=== PATIENT | female | born 1950 | race Caucasian/White ===

== ENCOUNTER 2019-02-10 15:42 | Inpatient (IN) ==
--- NOTE | 2019-02-10 16:46 | Emergency Department Note ---
Disposition Clinical Impression: Weakness Failure to thrive Qualifiers: Failure to thrive age range: in adult Qualified Code(s): R62.7 - Adult failure to thrive Disposition: Admitted As Inpatient Condition: Fair Referrals: Leida Dixon CNP [Primary Care Provider] - Forms: ED Satisfaction Letter Time of Disposition: 18:25 General Adult HPI - General Chief complaint: ED Weakness Stated complaint: weakness Time Seen by Provider: 02/10/19 16:02 Source: patient Mode of arrival: ambulatory Limitations: no limitations Nursing Notes Reviewed: Yes Vital Signs Reviewed: Yes - History of Present Illness HPI Narrative: Patient is a 68-year-old female history of retention and concern for metastatic cancer presenting to the emergency department from the [facility] for weakness. Patient was seen there earlier for a consultation on possible metast atic cancer. She has had a 30 pound weight loss in the past 6-8 weeks as well as severe fatigue, muscle weakness, poor appetite, chills, fever, nausea, constipation. Recent CT scans performed showed multiple liver lesions as well as sclerotic and lucent bone lesions of L5 and T12 and compression fractures of L5 and T12. There is also a 5.3 mm right lower lung nodule. Patient denies chest pain, abdominal pain. Pain Scale: 1 - Related Data Home Medications Medication Instructions Recorded Confirmed Atenolol [Tenormin] 25 mg PO DAILY 02/10/19 02/10/19 Allergies Allergy/AdvReac Type Severity Reaction Status Date / Time meperidine [From Demerol] Allergy Hives Verified 01/30/19 16:07 morphine Allergy Hives Verified 01/30/19 16:07 All systems ED: reviewed and negative except as stated. Review of Systems: As Per HPI Constitutional: Reports: fever, chills, weakness, weight change Eyes: Denies: eye pain, eye discharge ENT ED: Denies: ear pain, throat pain Cardiovascular: Denies: chest pain, palpitations Respiratory: Denies: cough, dyspnea Gastrointestinal: Reports: nausea. Denies: abdominal pain Genitourinary: Denies: urgency, dysuria Musculoskeletal: Reports: back pain. Denies: neck pain Integumentary: Denies: rash, abrasion Neurological: Reports: weakness. Denies: headache Psychiatric: Denies: anxiety, depression Endocrine: Reports: fatigue, heat or cold intolerance Hematological/Lymphatic: Denies: easy bleeding, easy bruising Allergic/Immunologic: Denies: facial swelling, urticaria Past Medical History - Past Medical History Attestation: Yes The following information was validated with the patient. Source: patient Medical history: Reports: arthritis, osteoporosis, other Psychiatric history: Reports: anxiety, depression - Social History Smoking Status: Never smoker Smokeless Tobacco Status: No Alcohol use: Reports: none Drug use: Reports: none Physical Exam - General Limitations: no limitations General appearance: alert - Head Head exam: atraumatic, normocephalic - Eye Eye exam: Present: normal appearance, PERRL, EOMI. Absent: scleral icterus, conjunctival injection - ENT ENT exam: normal exam, normal oropharynx, mucous membranes dry - Neck Neck exam: Present: normal inspection, full ROM - Chest Chest inspection: Present: normal inspection, symmetric chest wall rise. Absent: tenderness - Respiratory Respiratory exam: Present: normal lung sounds bilaterally. Absent: respiratory distress, wheezes - Cardiovascular Cardiovascular exam: Present: regular rate, normal rhythm, normal heart sounds - Abdominal Exam Abdominal exam: Present: soft, Non-Tender. Absent: tenderness, distention, guarding - Extremities Exam Extremities exam: Present: normal inspection, full ROM - Back Exam Back exam: Present: normal inspection, full ROM, tenderness (Lower thoracic) - Neurological Exam Neurological exam: Present: alert, oriented X3, CN II-XII intact. Absent: motor sensory deficit - Psychiatric Psychiatric exam: Present: normal affect, depressed - Skin Skin exam: Present: warm, dry Course Vital Signs Temperature 98.7 F 02/10/19 15:49 Pulse Rate 81 02/10/19 15:49 Respiratory Rate 17 02/10/19 15:49 Blood Pressure 126/76 02/10/19 15:49 O2 Sat by Pulse Oximetry 99 02/10/19 15:49 Temperature 98.7 F 02/10/19 15:49 Pulse Rate 85 02/10/19 18:05 Respiratory Rate 19 02/10/19 18:05 Blood Pressure 125/60 02/10/19 18:05 O2 Sat by Pulse Oximetry 100 02/10/19 18:05 Oxygen Delivery Oxygen Delivery Room Air Medical Decision Making - MDM Narrative Medical decision making narrative: Patient is a 68-year-old female with concerns for metastatic cancer seen by Dr. Cardoza today at the [facility] who said she should come into the emergency department to be admitted for weakness and failure to thrive. I will perform basic laboratory evaluation here. Spoke to Dr. cardoza he states that there is concern for metastatic cancer on his physical exam he noted a axillary lymph node that was enlarged that he would like to biopsy. He is planning to have the patient admitted and with him as consult so he can have some of these tests done here in the hospital. Spoke with Dr. Grijalva of the hospitalist service who has agreed to admit the patient. - Medical Records Medical records reviewed: Yes I reviewed the patient's medical records. - Lab Data Result diagrams: 02/10/19 16:55 02/10/19 16:55 Lab Results 02/10/19 02/10/19 02/10/19 Range/Units 16:40 16:55 16:55 WBC 8.0 (4.3-11.1) K/mcL RBC 3.83 (3.82-4.97) M/mcL Hgb 10.4 L (11.5-15.4) g/dL Hct 33.8 L (35.3-44.9) % MCV 88.3 (83.0-100.0) fL MCH 27.2 L (28.0-33.3) pg MCHC 30.8 L (31.6-35.5) g/dL RDW 14.6 H (11.5-14.5) % Plt Count 177 (140-400) K/mcL MPV 11.9 (9.4-12.4) fL Immature Gran % 4.9 H (0-4) % Seg Neutrophils % 54.9 % Lymphocytes % 28.5 % Monocytes % 9.8 % Eosinophils % 1.0 % Basophils % 0.9 % Neutrophils # 4.4 (1.6-8.9) K/mcL Lymphocytes # 2.3 (0.6-4.6) K/mcL Monocytes # 0.8 (0.0-1.3) K/mcL Eosinophils # 0.1 (0.0-0.6) K/mcL Basophils # 0.1 (0.0-0.2) K/mcL Nucleated RBCs/100 WBC 0.4 H (0) /100 WBC Sodium 137 (136-145) mEq/L Potassium 4.2 (3.5-5.1) mEq/L Chloride 100 (98-107) mEq/L Carbon Dioxide 27 (23-29) mEq/L BUN 17 (8-23) mg/dL Creatinine 1.06 (0.60-1.20) mg/dL Est GFR ( Amer) > 60 (> 60) Est GFR (Non-Af Amer) 51 L (> 60) BUN/Creatinine Ratio 16 (6-26) Glucose 120 H (70-105) mg/dL Calculated Osmolality 287 (280-300) Calcium 10.1 (8.6-10.3) mg/dL Total Bilirubin 0.6 (0.3-1.0) mg/dL AST 120 H (13-39) Units/L ALT 14 (7-52) Units/L Alkaline Phosphatase 151 H (34-104) Units/L Troponin I < 0.03 (< 0.04) ng/mL Serum Total Protein 6.9 (6.4-8.9) g/dL Albumin 3.9 (3.5-5.7) g/dL Globulin 3.0 (2.4-3.5) g/dL Albumin/Globulin Ratio 1.3 (1.1-2.2) Urine Color Yellow (Yellow) Urine Clarity Clear (Clear) Urine pH 6.5 (5.0-8.0) pH Units Ur Specific [place] 1.023 (1.010-1.025) Urine Protein 30 H (Neg-Trace) mg/dL Urine Glucose (UA) Normal (Normal) mg/dL Urine Ketones Negative (Negative) mg/dL Urine Blood Negative (Negative) Urine Nitrite Negative (Negative) Urine Bilirubin Negative (Negative) Urine Urobilinogen Normal (Normal) mg/dL Ur Leukocyte Esterase Small H (Negative) Urine Microscopic RBC 5-15 H (0-3) per hpf Urine Microscopic WBC 5-15 H (0-3) per hpf Ur Squamous Epith Cells Many H (None-Few) per lpf Urine Bacteria None Seen (None-Few) per hpf Hyaline Casts None Seen (None-Few) per lpf Ur Culture Indicated? YES A (NO)
[2019-02-10] MEDS ORDERED: 0.9 % Sodium Chloride 1,000 ML IVC ONE (17:13)
[2019-02-10 17:25] LABS: Basophils # 0.1 K/mcL (0.0-0.2); Basophils % 0.9 %; Eosinophils # 0.1 K/mcL (0.0-0.6); Hematocrit 33.8 % (35.3-44.9); Hemoglobin 10.4 g/dL (11.5-15.4); Immature Granulocytes % 4.9 % (0-4); Lymphocytes # 2.3 K/mcL (0.6-4.6); Lymphocytes % 28.5 %; Mean Corpuscular HGB Conc 30.8 g/dL (31.6-35.5); Mean Corpuscular Hemoglobin 27.2 pg (28.0-33.3); Mean Corpuscular Volume 88.3 fL (83.0-100.0); Mean Platelet Volume 11.9 fL (9.4-12.4); Monocytes # 0.8 K/mcL (0.0-1.3); Monocytes % 9.8 %; Neutrophils # 4.4 K/mcL (1.6-8.9); Nucleated Red Blood Cells 0.4 /100 WBC (0); Platelet Count 177 K/mcL (140-400); Red Blood Count 3.83 M/mcL (3.82-4.97); Red Cell Distribution Width 14.6 % (11.5-14.5); Segmented Neutrophils % 54.9 %
[2019-02-10 17:27] LABS: Bilirubin,Urine Negative (Negative); Blood,Urine Negative (Negative); Clarity,Urine Clear (Clear); Color,Urine Yellow (Yellow); Glucose,Urine (UA) Normal (Normal); Ketones,Urine Negative (Negative); Leukocyte Esterase,Urine Small (Negative); Nitrite,Urine Negative (Negative); PH,Urine 6.5 pH Units (5.0-8.0); Protein,Urine 30 mg/dL (Neg-Trace); Specific Gravity,Urine 1.023 (1.010-1.025); Urobilinogen,Urine Normal (Normal)
[2019-02-10 17:31] LABS: Bacteria,Urine None Seen per hpf (None-Few); Hyaline Casts,Urine None Seen per lpf (None-Few); Squamous Epithelial Cell,Urine Many per lpf (None-Few)
[2019-02-10 17:44] LABS: Alanine Aminotransferase 14 Units/L (7-52); Albumin 3.9 g/dL (3.5-5.7); Albumin/Globulin Ratio 1.3 (1.1-2.2); Alkaline Phosphatase 151 Units/L (34-104); Aspartate Amino Transferase 120 Units/L (13-39); BUN/Creatinine Ratio 16 (6-26); Bilirubin,Total 0.6 mg/dL (0.3-1.0); Blood Urea Nitrogen 17 mg/dL (8-23); Calcium 10.1 mg/dL (8.6-10.3); Carbon Dioxide 27 mEq/L (23-29); Chloride 100 mEq/L (98-107); Glucose 120 mg/dL (70-105); Osmolality,Calculated 287 (280-300); Potassium 4.2 mEq/L (3.5-5.1); Sodium 137 mEq/L (136-145); Total Protein 6.9 g/dL (6.4-8.9); Troponin I < 0.03 ng/mL (< 0.04); eGFR For African Americans > 60 (> 60); eGFR For Non-African Americans 51 (> 60)
--- NOTE | 2019-02-10 17:56 | Emergency Department Note ---
Disposition Clinical Impression: Weakness Failure to thrive Qualifiers: Failure to thrive age range: in adult Qualified Code(s): R62.7 - Adult failure to thrive Disposition: Admitted As Inpatient Condition: Fair Time of Disposition: 18:25 General Adult HPI - General Chief complaint: ED Weakness Stated complaint: weakness Time Seen by Provider: 02/10/19 16:02 Source: patient Mode of arrival: ambulatory Limitations: no limitations - History of Present Illness Pain Scale: 1 - Related Data Home Medications Medication Instructions Recorded Confirmed Atenolol [Tenormin] 25 mg PO DAILY 02/10/19 02/10/19 Allergies Allergy/AdvReac Type Severity Reaction Status Date / Time meperidine [From Demerol] Allergy Hives Verified 01/30/19 16:07 morphine Allergy Hives Verified 01/30/19 16:07 Constitutional: Reports: fever, chills, weakness, weight change Eyes: Denies: eye pain, eye discharge ENT ED: Denies: ear pain, throat pain Cardiovascular: Denies: chest pain, palpitations Respiratory: Denies: cough, dyspnea Gastrointestinal: Reports: nausea. Denies: abdominal pain Genitourinary: Denies: urgency, dysuria Musculoskeletal: Reports: back pain. Denies: neck pain Integumentary: Denies: rash, abrasion Neurological: Reports: weakness. Denies: headache Psychiatric: Denies: anxiety, depression Endocrine: Reports: fatigue, heat or cold intolerance Hematological/Lymphatic: Denies: easy bleeding, easy bruising Allergic/Immunologic: Denies: facial swelling, urticaria Past Medical History - Past Medical History Medical history: Reports: arthritis, osteoporosis, other Psychiatric history: Reports: anxiety, depression - Social History Smoking Status: Never smoker Smokeless Tobacco Status: No Alcohol use: Reports: none Drug use: Reports: none Physical Exam - General Limitations: no limitations General appearance: alert Course Vital Signs Temperature 98.7 F 02/10/19 15:49 Pulse Rate 81 02/10/19 15:49 Respiratory Rate 17 02/10/19 15:49 Blood Pressure 126/76 02/10/19 15:49 O2 Sat by Pulse Oximetry 99 02/10/19 15:49 Temperature 98.7 F 02/10/19 20:17 Pulse Rate 87 02/10/19 20:17 Respiratory Rate 16 02/10/19 20:17 Blood Pressure 135/76 02/10/19 20:17 O2 Sat by Pulse Oximetry 97 02/10/19 20:17 Oxygen Delivery Oxygen Delivery Room Air Medical Decision Making - Lab Data Result diagrams: 02/10/19 16:55 02/10/19 16:55 Lab Results 02/10/19 02/10/19 02/10/19 Range/Units 16:40 16:55 16:55 WBC 8.0 (4.3-11.1) K/mcL RBC 3.83 (3.82-4.97) M/mcL Hgb 10.4 L (11.5-15.4) g/dL Hct 33.8 L (35.3-44.9) % MCV 88.3 (83.0-100.0) fL MCH 27.2 L (28.0-33.3) pg MCHC 30.8 L (31.6-35.5) g/dL RDW 14.6 H (11.5-14.5) % Plt Count 177 (140-400) K/mcL MPV 11.9 (9.4-12.4) fL Immature Gran % 4.9 H (0-4) % Seg Neutrophils % 54.9 % Lymphocytes % 28.5 % Monocytes % 9.8 % Eosinophils % 1.0 % Basophils % 0.9 % Neutrophils # 4.4 (1.6-8.9) K/mcL Lymphocytes # 2.3 (0.6-4.6) K/mcL Monocytes # 0.8 (0.0-1.3) K/mcL Eosinophils # 0.1 (0.0-0.6) K/mcL Basophils # 0.1 (0.0-0.2) K/mcL Nucleated RBCs/100 WBC 0.4 H (0) /100 WBC Sodium 137 (136-145) mEq/L Potassium 4.2 (3.5-5.1) mEq/L Chloride 100 (98-107) mEq/L Carbon Dioxide 27 (23-29) mEq/L BUN 17 (8-23) mg/dL Creatinine 1.06 (0.60-1.20) mg/dL Est GFR ( Amer) > 60 (> 60) Est GFR (Non-Af Amer) 51 L (> 60) BUN/Creatinine Ratio 16 (6-26) Glucose 120 H (70-105) mg/dL Calculated Osmolality 287 (280-300) Calcium 10.1 (8.6-10.3) mg/dL Total Bilirubin 0.6 (0.3-1.0) mg/dL AST 120 H (13-39) Units/L ALT 14 (7-52) Units/L Alkaline Phosphatase 151 H (34-104) Units/L Troponin I < 0.03 (< 0.04) ng/mL Serum Total Protein 6.9 (6.4-8.9) g/dL Albumin 3.9 (3.5-5.7) g/dL Globulin 3.0 (2.4-3.5) g/dL Albumin/Globulin Ratio 1.3 (1.1-2.2) Urine Color Yellow (Yellow) Urine Clarity Clear (Clear) Urine pH 6.5 (5.0-8.0) pH Units Ur Specific [place] 1.023 (1.010-1.025) Urine Protein 30 H (Neg-Trace) mg/dL Urine Glucose (UA) Normal (Normal) mg/dL Urine Ketones Negative (Negative) mg/dL Urine Blood Negative (Negative) Urine Nitrite Negative (Negative) Urine Bilirubin Negative (Negative) Urine Urobilinogen Normal (Normal) mg/dL Ur Leukocyte Esterase Small H (Negative) Urine Microscopic RBC 5-15 H (0-3) per hpf Urine Microscopic WBC 5-15 H (0-3) per hpf Ur Squamous Epith Cells Many H (None-Few) per lpf Urine Bacteria None Seen (None-Few) per hpf Hyaline Casts None Seen (None-Few) per lpf Ur Culture Indicated? YES A (NO) Attestation Statement - Attestation Attestation: I examined this patient and my medical decision-making was reviewed with the Resident Physician. I agree with the documented findings, disposition and treatment plan as described except to the extent set forth below. Patient 68-year-old female that presents to emergency department with chief complaint of generalized weakness the patient is being worked up by oncology for multiple metastatic lesions found. The patient was recommended to come to the emergency department for admission since she has had significant failure to thrive at home and has had decreased by mouth intake. Exam patient is awake alert appears to be weak and also has dry mucous membranes. Medical decision management the patient will undergo a laboratory study testing. The case was discussed with the patient's oncologist who sent the patient over from the office. They recommended that we discussed case with the hospitalist and have the patient admitted so that they can consult and do further workup in the inpatient setting on the patient. I personally supervised and was present for the giordano/critical portions of the following procedures completed by the resident:EKG.
[2019-02-10] MEDS ORDERED: Naloxone 0.4 MG/ML INJ IVP PRN (20:12)
[2019-02-10] MEDS ORDERED: Ondansetron ODT 4 MG TAB.RAPDIS SL PRN (20:12)
--- NOTE | 2019-02-10 20:30 | Internal Med History&Physical ---
Date of Encounter: 02/11/19 Time of Encounter: 20:28 Internal Medicine - H&P: HPI Chief complaint: weakness Admitted From: Home Plans for Post Hospital Care: Home History of present illness: Ms. Motta is a 68 year old female presented to the ED from the oncology clinic for failure to thrive. Face to face encounter at 8:pm. Patient reported the past few months has been follow-up with chiropractor for chronic back pain however the past month has went to [facility] where a workup imaging was done on her lumbar back and was noted to have multiple metastatic spots. Patient then followed up with oncology in the clinic. Patient reported that she has been becoming more weak and unintentional weight loss with Low oral intake due to low appetite. Patient otherwise denies chest pain, shortness of breath, nausea, ni ght sweats, abdominal pain, dysuria or diarrhea. Patient reported her last mammography was done approximately more than 2 years ago, loss colonoscopy less than 5 years ago that was normal, Pap smear that was done approximately 5 years ago that was normal. There is works up was done at the [facility] in [facility]. Patient denies smoking, drinking, drugs. Family history positive for renal cancer in her brother's side otherwise no cancer maternally/paternally. 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 CODE STATUS was reviewed and is full code. Past Med Surg Social Fam HX - Past Medical History Medical history: arthritis, osteoporosis, other Psychiatric history: anxiety, depression - Past Surgical History Additional surgical history: colon sx - Social History Smoking Status: Never smoker Smokeless Tobacco Status: No Alcohol use: none Drug use: none Internal Medicine - H&P: Meds Atenolol [Tenormin] 25 mg PO DAILY 02/10/19 [History] Allergy/AdvReac Type Severity Reaction Status Date / Time meperidine [From Demerol] Allergy Hives Verified 01/30/19 16:07 morphine Allergy Hives Verified 01/30/19 16:07 All Systems PM: A 10-system review of systems was performed and is negative for pertinent findings except as documented above in the HPI. Review of systems: General: + unintentional weightloss, No fever Head: No headahce, No injury. Ears: No discharge, No earache Eyes: No drainage, No eye pain Mouth and Throat: No new ulcers, No pain Nose and Sinus: No new congestion, No pain, Respiratory: No cough, No sputum production, No dyspnea Cardiovascular: No chest pain, No palpitations. Gastrointestinal: + nausea, No vomiting. No abdominal pain. Genital Tract: No discharge, No pain Urinary Tract: No dysuria, No discharge. MSK: No new/worsening joint pain, No new/worsening muscle ache. Endocrine: No cold intolerance, No polyuria Psychological: No suicidal, No homocidal ideation. - Constitutional Vitals: Temp Pulse Resp BP Pulse Ox 98.7 F 87 16 135/76 97 02/10/19 20:17 02/10/19 20:17 02/10/19 20:17 02/10/19 20:17 02/10/19 20:17 Exam: General Appearance: Appearing as age, well-nourished in mild acute distress. Head: Atraumatic normocephalic Skin: Normal texture, normal turgor, warm, dry. Eyes: Conjunctivae not pale with no erythema, drainage, or ulcers. Anicteric. Neck: No Lymphadenopathy in the anterior/posterior cervical chain. No thyromegaly, masses or ulcers. Trachea midline. Heart: RRR, no murmurs. Capillary refill 3 seconds Lungs: No accessory muscle usage, lungs clear to auscultation bilaterally, no wheezes or crackles. Extremities: No pitting edema, No clubbing, No cyanosis. Abdomen: Non-distended, normoactive bowel sounds. non-tender to palpation, no hepatomegally. No guarding. Neuro: AOx3 with no new sensory loss or focal deficits. MSK: Strength 5/5 Upper extremity equal bilaterally. Strength 5/5 Lower extremity equal bilaterally Internal Med - H&P Results - Labs CBC & Chem 7: 02/11/19 03:10 02/11/19 03:10 Labs: Short CBC 02/10/19 Range/Units 16:55 WBC 8.0 (4.3-11.1) K/mcL Hgb 10.4 L (11.5-15.4) g/dL Hct 33.8 L (35.3-44.9) % Plt Count 177 (140-400) K/mcL Neutrophils # 4.4 (1.6-8.9) K/mcL BMP 02/10/19 16:55 Sodium 137 Potassium 4.2 Chloride 100 Carbon Dioxide 27 BUN 17 Creatinine 1.06 Glucose 120 H Calcium 10.1 Cardiac Enzymes 02/10/19 Range/Units 16:55 Troponin I < 0.03 (< 0.04) ng/mL Liver Function 02/10/19 Range/Units 16:55 Total Bilirubin 0.6 (0.3-1.0) mg/dL AST 120 H (13-39) Units/L ALT 14 (7-52) Units/L Alkaline Phosphatase 151 H (34-104) Units/L Albumin 3.9 (3.5-5.7) g/dL Urine 02/10/19 Range/Units 16:40 Urine Color Yellow (Yellow) Urine Clarity Clear (Clear) Urine pH 6.5 (5.0-8.0) pH Units Ur Specific [place] 1.023 (1.010-1.025) Urine Protein 30 H (Neg-Trace) mg/dL Urine Glucose (UA) Normal (Normal) mg/dL - Summary of Assessment and Plan Summary of Assessment and Plan: 1.Cancer of Unknown primary suspected: Patient had lymphadenopathy axillary with screening tests done at various locations. Requested records. CT head, chest, abdomen and pelvis orderred and shows extensive metastatic disease. suspected Breast source. Heme/onc spoken to yesterday and appreciate recommendations. 2.Normocytic anemia: Anemia panel orderred. 3.Dehydration: IVF and recheck. zofran for nausea. 4.hyperglycemia: A1c pending. DVT prophylaxis: heparin Dispo: Likely < 2 day stay. - Time Spent With Patient Total time spent is greater than 39 minutes 50% in coordination of care (as documented) at patient's floor/unit and/or counseling patient: Greater than 35 minutes
[2019-02-10] MEDS ORDERED: Isovue-370 500 ML BOTTLE IVP ONE ×2 (20:34)
[2019-02-10] MEDS: Ringers Solution, Lactated 1,000 ML IVC SCH (21:34)
[2019-02-10] MEDS: *HR* Heparin 5,000 UNIT/ML VIAL SQ SCH (21:35)
[2019-02-11 03:28] LABS: Immature Reticulocyte % 26.1 % (11.0-38.0); Retculocyte # 0.08 M/mcL (0.05-0.10); Reticulocyte % 2.4 % (1.6-2.8)
[2019-02-11 03:31] LABS: Basophils % 0.5 %; Eosinophils # 0.1 K/mcL (0.0-0.6); Eosinophils % 1.5 %; Hematocrit 30.1 % (35.3-44.9); Hemoglobin 9.6 g/dL (11.5-15.4); Immature Granulocytes % 4.2 % (0-4); Lymphocytes # 2.5 K/mcL (0.6-4.6); Lymphocytes % 32.4 %; Mean Corpuscular HGB Conc 31.9 g/dL (31.6-35.5); Mean Corpuscular Hemoglobin 27.8 pg (28.0-33.3); Mean Corpuscular Volume 87.2 fL (83.0-100.0); Mean Platelet Volume 11.2 fL (9.4-12.4); Monocytes # 0.7 K/mcL (0.0-1.3); Monocytes % 9.2 %; Nucleated Red Blood Cells 0.3 /100 WBC (0); Platelet Count 159 K/mcL (140-400); Red Blood Count 3.45 M/mcL (3.82-4.97); Red Cell Distribution Width 14.6 % (11.5-14.5); Segmented Neutrophils % 52.2 %; White Blood Count 7.6 K/mcL (4.3-11.1)
[2019-02-11 03:41] LABS: INR 1.1; Prothrombin Time 12.5 Seconds (9.4-12.1)
[2019-02-11 03:47] LABS: Alanine Aminotransferase 12 Units/L (7-52); Albumin 3.5 g/dL (3.5-5.7); Albumin/Globulin Ratio 1.3 (1.1-2.2); Alkaline Phosphatase 138 Units/L (34-104); Aspartate Amino Transferase 77 Units/L (13-39); BUN/Creatinine Ratio 15 (6-26); Bilirubin,Total 0.6 mg/dL (0.3-1.0); Blood Urea Nitrogen 14 mg/dL (8-23); Calcium 9.4 mg/dL (8.6-10.3); Carbon Dioxide 23 mEq/L (23-29); Chloride 104 mEq/L (98-107); Chol/HDL Ratio 5.9 (0-4.9); Cholesterol 184 mg/dL (< 200); Globulin 2.6 g/dL (2.4-3.5); Glucose 130 mg/dL (70-105); HDL Cholesterol 31 mg/dL (40-59); LDL Cholesterol,Calculated 118 mg/dL (0-99); Magnesium 2.2 mg/dL (1.6-2.6); Osmolality,Calculated 286 (280-300); Phosphorous 4.2 mg/dL (2.7-4.5); Potassium 3.7 mEq/L (3.5-5.1); Sodium 137 mEq/L (136-145); Total Protein 6.1 g/dL (6.4-8.9); Triglycerides 177 mg/dL (< 150); eGFR For African Americans > 60 (> 60); eGFR For Non-African Americans > 60 (> 60)
[2019-02-11 03:48] LABS: % Iron Saturation 25 % (15-50); Iron 55 mcg/dL (50-170); Lactate Dehydrogenase 445 Units/L (140-271); Transferrin 159 mg/dL (203-362)
[2019-02-11 04:07] LABS: Ferritin > 1500 ng/mL (10-120)
[2019-02-11 04:12] LABS: Vitamin B12 > 1500 pg/mL (250-1100)
[2019-02-11] MEDS: *HR* Heparin 5,000 UNIT/ML VIAL SQ SCH ×3 (05:30→20:27)
[2019-02-11] MEDS: Ringers Solution, Lactated 1,000 ML IVC SCH (08:43)
--- NOTE | 2019-02-11 09:58 | Electrocardiograph Report ---
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
--- NOTE | 2019-02-11 12:02 | Oncology Inp Consult Note ---
<Isabell Estrella - Last Filed: 02/11/19 17:21> Date of Encounter: 02/11/19 Time of Encounter: 12:02 Assessment and Plan (1) Axillary adenopathy Status: Acute Assessment and plan: Right axillary lymphadenopathy- palpable and noted on CT imaging. Plan for IR consult for ultrasound-guided biopsy. Discussed biopsy with patient, but she is hesitant at making decisions regarding care. She remains NPO with plan for biopsy this afternoon. (2) Failure to thrive Status: Acute Assessment and plan: Cathi notes 30lb weight loss in the past 4-6 weeks. Travel Clerk consulted. Patient was NPO for procedure today. Qualifiers: Failure to thrive age range: in adult Qualified Code(s): R62.7 - Adult failure to thrive (3) Anemia due to chronic illness Status: Acute Assessment and plan: Normocytic, normochromic anemia Hgb 9.6 Iron profile: iron 55, saturation 25% ferritin > 1500 B12 >1500 folate 17 LDH 445 Plan: Monitor CBC. - Data of Consult Patient: known to practice within the last 3 years Consult date: 02/11/19 Requesting Physician: Zully Castanon MD Primary Care Provider: ROME Browne - Consult Narrative Reason for consult: FTT, sent from Dr. Luna's outpatient visit History of present illness: Cathi, a 68 yo female, was sent to the emergency department due to [id number] after he outpatient appointment with Dr. Luna on 02/10/19. Cathi was referred to the [facility] due to concerns for metastatic cancer. She was noted to have a pulmonary nodule and right axillary lymphadenopathy. She notes 30lb weight loss, decreased appetite, and early satiety over the past 4-6 weeks. She notes chronic back pain that has worsened. She uses a walker or cane with ambulation. Oncology history: Primary oncologist: Dr. Luna Diagnosis: pending work-up Social history: , but no longer living with . 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 Currently lives with son in [place], [place] (notes that son works outside the home and she is alone for a good part of the day) She notes little family support and may have difficulty with transportation for appointments. Denies alcohol use Denies tobacco use Denies illicit drug use Past Med Surg Social Fam HX - Past Medical History Medical history: arthritis, osteoporosis, other Psychiatric history: anxiety, depression - Past Surgical History Additional surgical history: colon sx - Social History Smoking Status: Never smoker Smokeless Tobacco Status: No Alcohol use: none Drug use: none Medications and Allergies Atenolol [Tenormin] 25 mg PO DAILY 02/10/19 [History] Ascorbate Calcium [Vitamin C] 500 mg PO DAILY 02/11/19 [History] Cyanocobalamin (Vitamin B-12) [Vitamin B-12] 1,000 mcg PO DAILY 02/11/19 [History] Magnesium Oxide [Magnesium] 400 mg PO DAILY 02/11/19 [History] Naproxen Sodium [Aleve] 220 mg PO DAILY PRN 02/11/19 [History] Allergy/AdvReac Type Severity Reaction Status Date / Time meperidine [From Demerol] Allergy Hives Verified 01/30/19 16:07 morphine Allergy Hives Verified 01/30/19 16:07 Constitutional: Present: fatigue, weight loss. Absent: night sweats Breasts: Absent: pain, nipple discharge, skin changes Cardiovascular: Absent: chest pain, palpitations Respiratory: Absent: dyspnea Gastrointestinal: Present: early satiety. Absent: nausea, vomiting Musculoskeletal: Present: back pain, muscle weakness Endocrine: Present: fatigue Oncology - Exam - Constitutional General appearance: disheveled - Head Head exam: Present: normal inspection, normocephalic - Respiratory Respiratory exam: Present: CTAB - Cardiovascular Cardiovascular exam: Present: RRR - GI/Abdominal GI/Abdominal exam: Present: normal bowel sounds, soft. Absent: tenderness - Extremities Exam Extremities exam: Present: normal inspection - Neurological Exam Neurological exam: Present: alert, oriented X3 - Psychiatric Psychiatric exam: Present: anxious - Skin Skin exam: Present: dry, pallor Oncology Inpatient Results Labs: Laboratory Results - last 24 hr 02/10/19 02/10/19 02/10/19 16:40 16:55 16:55 WBC 8.0 RBC 3.83 Hgb 10.4 L Hct 33.8 L MCV 88.3 MCH 27.2 L MCHC 30.8 L RDW 14.6 H Plt Count 177 MPV 11.9 Reticulocyte # Immature Gran % 4.9 H Seg Neutrophils % 54.9 Lymphocytes % 28.5 Monocytes % 9.8 Eosinophils % 1.0 Basophils % 0.9 Neutrophils # 4.4 Lymphocytes # 2.3 Monocytes # 0.8 Eosinophils # 0.1 Basophils # 0.1 Nucleated RBCs/100 WBC 0.4 H Smear Path Review Percent Retic Immature Retic Fraction Retic Hgb Equivalent PT INR Sodium 137 Potassium 4.2 Chloride 100 Carbon Dioxide 27 BUN 17 Creatinine 1.06 Est GFR ( Amer) > 60 Est GFR (Non-Af Amer) 51 L BUN/Creatinine Ratio 16 Glucose 120 H Calculated Osmolality 287 Calcium 10.1 Phosphorus Magnesium Iron % Saturation Transferrin Ferritin Total Bilirubin 0.6 AST 120 H ALT 14 Alkaline Phosphatase 151 H Lactate Dehydrogenase Troponin I < 0.03 Serum Total Protein 6.9 Albumin 3.9 Globulin 3.0 Albumin/Globulin Ratio 1.3 Triglycerides Cholesterol LDL Cholesterol, Calc VLDL Cholesterol, Calc HDL Cholesterol Cholesterol/HDL Ratio Vitamin B12 Folate Procalcitonin Urine Color Yellow Urine Clarity Clear Urine pH 6.5 Ur Specific [place] 1.023 Urine Protein 30 H Urine Glucose (UA) Normal Urine Ketones Negative Urine Blood Negative Urine Nitrite Negative Urine Bilirubin Negative Urine Urobilinogen Normal Ur Leukocyte Esterase Small H Urine Microscopic RBC 5-15 H Urine Microscopic WBC 5-15 H Ur Squamous Epith Cells Many H Urine Bacteria None Seen Hyaline Casts None Seen Ur Culture Indicated? YES A Blood Type Antibody Screen 02/10/19 02/10/19 02/11/19 23:02 23:02 03:10 WBC 7.6 RBC 3.45 L Hgb 9.6 L Hct 30.1 L MCV 87.2 MCH 27.8 L MCHC 31.9 RDW 14.6 H Plt Count 159 MPV 11.2 Reticulocyte # 0.08 Immature Gran % 4.2 H Seg Neutrophils % 52.2 Lymphocytes % 32.4 Monocytes % 9.2 Eosinophils % 1.5 Basophils % 0.5 Neutrophils # 4.0 Lymphocytes # 2.5 Monocytes # 0.7 Eosinophils # 0.1 Basophils # 0.0 Nucleated RBCs/100 WBC 0.3 H Smear Path Review See Below Percent Retic 2.4 Immature Retic Fraction 26.1 Retic Hgb Equivalent 32.1 PT INR Sodium Potassium Chloride Carbon Dioxide BUN Creatinine Est GFR ( Amer) Est GFR (Non-Af Amer) BUN/Creatinine Ratio Glucose Calculated Osmolality Calcium Phosphorus Magnesium Iron % Saturation Transferrin Ferritin Total Bilirubin AST ALT Alkaline Phosphatase Lactate Dehydrogenase Troponin I < 0.03 Serum Total Protein Albumin Globulin Albumin/Globulin Ratio Triglycerides Cholesterol LDL Cholesterol, Calc VLDL Cholesterol, Calc HDL Cholesterol Cholesterol/HDL Ratio Vitamin B12 Folate Procalcitonin 0.27 H Urine Color Urine Clarity Urine pH Ur Specific [place] Urine Protein Urine Glucose (UA) Urine Ketones Urine Blood Urine Nitrite Urine Bilirubin Urine Urobilinogen Ur Leukocyte Esterase Urine Microscopic RBC Urine Microscopic WBC Ur Squamous Epith Cells Urine Bacteria Hyaline Casts Ur Culture Indicated? Blood Type Antibody Screen 02/11/19 02/11/19 02/11/19 03:10 03:10 03:10 WBC RBC Hgb Hct MCV MCH MCHC RDW Plt Count MPV Reticulocyte # Immature Gran % Seg Neutrophils % Lymphocytes % Monocytes % Eosinophils % Basophils % Neutrophils # Lymphocytes # Monocytes # Eosinophils # Basophils # Nucleated RBCs/100 WBC Smear Path Review Percent Retic Immature Retic Fraction Retic Hgb Equivalent PT INR Sodium Potassium Chloride Carbon Dioxide BUN Creatinine Est GFR ( Amer) Est GFR (Non-Af Amer) BUN/Creatinine Ratio Glucose Calculated Osmolality Calcium Phosphorus Magnesium Iron 55 % Saturation 25 Transferrin 159 L Ferritin > 1500 H Total Bilirubin AST ALT Alkaline Phosphatase Lactate Dehydrogenase 445 H Troponin I Serum Total Protein Albumin Globulin Albumin/Globulin Ratio Triglycerides Cholesterol LDL Cholesterol, Calc VLDL Cholesterol, Calc HDL Cholesterol Cholesterol/HDL Ratio Vitamin B12 > 1500 H Folate 17.0 H Procalcitonin Urine Color Urine Clarity Urine pH Ur Specific [place] Urine Protein Urine Glucose (UA) Urine Ketones Urine Blood Urine Nitrite Urine Bilirubin Urine Urobilinogen Ur Leukocyte Esterase Urine Microscopic RBC Urine Microscopic WBC Ur Squamous Epith Cells Urine Bacteria Hyaline Casts Ur Culture Indicated? Blood Type O POSITIVE Antibody Screen NEGATIVE 02/11/19 02/11/19 02/11/19 03:10 03:10 03:10 WBC RBC Hgb Hct MCV MCH MCHC RDW Plt Count MPV Reticulocyte # Immature Gran % Seg Neutrophils % Lymphocytes % Monocytes % Eosinophils % Basophils % Neutrophils # Lymphocytes # Monocytes # Eosinophils # Basophils # Nucleated RBCs/100 WBC Smear Path Review Percent Retic Immature Retic Fraction Retic Hgb Equivalent PT 12.5 H INR 1.1 Sodium 137 Potassium 3.7 Chloride 104 Carbon Dioxide 23 BUN 14 Creatinine 0.92 Est GFR ( Amer) > 60 Est GFR (Non-Af Amer) > 60 BUN/Creatinine Ratio 15 Glucose 130 H Calculated Osmolality 286 Calcium 9.4 Phosphorus 4.2 Magnesium 2.2 Iron % Saturation Transferrin Ferritin Total Bilirubin 0.6 AST 77 H ALT 12 Alkaline Phosphatase 138 H Lactate Dehydrogenase Troponin I < 0.03 Serum Total Protein 6.1 L Albumin 3.5 Globulin 2.6 Albumin/Globulin Ratio 1.3 Triglycerides 177 H Cholesterol 184 LDL Cholesterol, Calc 118 H VLDL Cholesterol, Calc 35 H HDL Cholesterol 31 L Cholesterol/HDL Ratio 5.9 H Vitamin B12 Folate Procalcitonin Urine Color Urine Clarity Urine pH Ur Specific [place] Urine Protein Urine Glucose (UA) Urine Ketones Urine Blood Urine Nitrite Urine Bilirubin Urine Urobilinogen Ur Leukocyte Esterase Urine Microscopic RBC Urine Microscopic WBC Ur Squamous Epith Cells Urine Bacteria Hyaline Casts Ur Culture Indicated? Blood Type Antibody Screen Head CT 02/10/19 23:48 IMPRESSION: No acute intracranial abnormality. Focal ovoid 1 cm lucency in the right frontal skull which could represent benign entities such as a venous C[place]. Given history of cancer, metastatic disease is not excluded. Comparison with prior remote studies would be helpful if available. Otherwise, bone scan could be performed. D/ / Chani Murguia Cha, MD / Chani Murguia Cha, MD Interpreting Provider: Chani Murguia Cha, MD Abdomen/Pelvis CT 02/10/19 23:51 IMPRESSION: 1. Within the chest, the patient has enlarged right axillary lymph nodes and a large area of asymmetry in the right breast. 2. Within the chest, moderate to pronounced mediastinal adenopathy is noted. The patient has numerous scattered ill-defined lung nodules consistent with pulmonary metastasis. 3. Findings compatible with hepatic metastatic disease. Enlarged right retrocrural lymph node. 4. Demineralization in the hips and scattered osseous abnormalities consistent with extensive bony metastatic disease. 5. Uterus is abnormal in appearance with heterogeneous enlarged endometrium RECOMMENDATIONS: Consider radionuclide bone imaging. D/ / Roseanne Singh MD / Roseanne Singh MD Interpreting Provider: Roseanne Singh MD Chest CT 02/10/19 23:51 IMPRESSION: 1. Within the chest, the patient has enlarged right axillary lymph nodes and a large area of asymmetry in the right breast. 2. Within the chest, moderate to pronounced mediastinal adenopathy is noted. The patient has numerous scattered ill-defined lung nodules consistent with pulmonary metastasis. 3. Findings compatible with hepatic metastatic disease. Enlarged right retrocrural lymph node. 4. Demineralization in the hips and scattered osseous abnormalities consistent with extensive bony metastatic disease. 5. Uterus is abnormal in appearance with heterogeneous enlarged endometrium RECOMMENDATIONS: Consider radionuclide bone imaging. D/ / Roseanne Singh MD / Roseanne Singh MD Interpreting Provider: Roseanne Singh MD Consult Discharge Plan - Plan Referrals: Leida Dixon CNP [Primary Care Provider] - 02/17/19 2:30 pm Inpatient Charges Provider: Dr. Caroline Leigh <Brennon Leigh - Last Filed: 02/12/19 17:12> Date of Encounter: 02/12/19 - Data of Consult Requesting Physician: Zully Castanon MD Primary Care Provider: ROME Browne - Consult Narrative History of present illness: Imaging findings reviewed. Pt interviewed and examined Rt axillary adenopathy palpated. Discussed with pt bx procedures at 8:00AM yesterday. She is scheduled to have procedure tomorrow after my MAKE READY MECHANIC had extensive discussion with patient. Social situation, pt stays in the hospital for w/u and diagnosis. I examined this patient and my medical decision-making was reviewed with the Advanced Practice Nurse, Isabell Estrella CNP. I agree with the documented findings, disposition and treatment plan as described except to the extent set forth below. Inpatient Charges Provider: Dr. Caroline Leigh Consult - Inpatient: [id number]
--- NOTE | 2019-02-11 13:21 | Internal Med Progress Note ---
Hospitalist Progress Note - Encounter Date of Encounter: 02/11/19 Time of Encounter: 11:30 - Subjective Interval History: Ms. Motta is a 68 year old female presented to the ED from the oncology clinic for failure to thrive and further work up for her recently found metastatic disease. Patient reported she has been having chronic low back pain for few months and followed-up with chiropractor. She had X ray spine done and noticed multiple ostolytic lesions. Patient then followed up with Heme oncology. Patient reported her last mammography was done approximately more than 2 years ago, loss colonoscopy less than 5 years ago that was normal, Pap smear that was done approximately 5 years ago that was normal. Family history positive for renal cancer. In the ER her CT of Chest / Abd / pelvis showed enlarged right axillary lymph nodes and a large area of asymmetry in the right breast. Moderate to pronounced mediastinal adenopathy is noted. She has numerous scattered ill- defined lung nodules consistent with pulmonary metastasis. Demineralization in the hips and scattered osseous abnormalities consistent with extensive bony metastatic disease. Uterus is abnormal in appearance with heterogeneous enlarged endometrium. She was admitted in the hospital and started her on symptomatic and supportive care. Pt stated she is feeling better today, her pain is tolerable with current meds. She does look very depressed and initially refused to go for further work up, she thinks all her back pain is due to severe arthritis, her weight loss of 30 lbs in a month is due to lack of appetite and her back pain and bone lesions are due to his chiro practice miss management. - Exam Vitals: Temp Pulse Resp BP Pulse Ox 98.4 F 83 16 145/81 95 02/11/19 12:45 02/11/19 12:45 02/11/19 12:45 02/11/19 12:45 02/11/19 12:45 Exam: Gen: Alert, awake, Oriented to time,place and person Chest: Diminished breath sounds B/L, No wheezing, No crackles, No rales axillary lymphadenopathy+ Heart: S1S2+ RRR No murmurs Abd: Soft, NT, BS +, No organomegaly Ext: No edema, pulses are palpable, No calf tenderness Back: mild paravertebral tenderness Neuro : No acute focal neuro deficits noticed Psych: depressed.. Denied any suicidal ideation/HI Skin: No rash. - Assessment and Plan (1) Axillary adenopathy Current Visit: Yes Status: Acute Assessment and Plan: concerning for possible breast malignancy, noticed possible mass in Rt breast on CT of chest scheduled for US guided Rt axiallary lymph node biopsy by IR today Explained to the pt about importance of going for this diagnostic work up she agreed to go for biopsy today Heme onc on board.. appreciate recommendations (2) Mediastinal lymphadenopathy Current Visit: Yes Status: Acute Assessment and Plan: care as above (3) Breast mass, right Current Visit: Yes Status: Acute Assessment and Plan: care as above (4) Anemia due to chronic illness Current Visit: Yes Status: Acute Assessment and Plan: stable Hb cont close monitoring reviewed her Iron studies.. concerning for possible malignancy / chronic disease (5) Failure to thrive Current Visit: Yes Status: Acute Assessment and Plan: Due to malignancy lost 30 lbs in 1 month consult nutrition will check pre albumin level (6) Weakness Current Visit: Yes Status: Acute - Time Spent with Patient Total time spent is greater than 50% in coordination of care (as documented) at patient's floor/unit and/or counseling patient: Internal Medicine: Result - Labs CBC & Chem 7: 02/11/19 03:10 02/11/19 03:10 Labs: Short CBC 02/10/19 02/11/19 Range/Units 16:55 03:10 WBC 8.0 7.6 (4.3-11.1) K/mcL Hgb 10.4 L 9.6 L (11.5-15.4) g/dL Hct 33.8 L 30.1 L (35.3-44.9) % Plt Count 177 159 (140-400) K/mcL Neutrophils # 4.4 4.0 (1.6-8.9) K/mcL BMP 02/10/19 02/11/19 16:55 03:10 Sodium 137 137 Potassium 4.2 3.7 Chloride 100 104 Carbon Dioxide 27 23 BUN 17 14 Creatinine 1.06 0.92 Glucose 120 H 130 H Calcium 10.1 9.4 Cardiac Enzymes 02/10/19 02/10/19 02/11/19 Range/Units 16:55 23:02 03:10 Troponin I < 0.03 < 0.03 < 0.03 (< 0.04) ng/mL Liver Function 02/10/19 02/11/19 Range/Units 16:55 03:10 Total Bilirubin 0.6 0.6 (0.3-1.0) mg/dL AST 120 H 77 H (13-39) Units/L ALT 14 12 (7-52) Units/L Alkaline Phosphatase 151 H 138 H (34-104) Units/L Albumin 3.9 3.5 (3.5-5.7) g/dL Urine 02/10/19 Range/Units 16:40 Urine Color Yellow (Yellow) Urine Clarity Clear (Clear) Urine pH 6.5 (5.0-8.0) pH Units Ur Specific [place] 1.023 (1.010-1.025) Urine Protein 30 H (Neg-Trace) mg/dL Urine Glucose (UA) Normal (Normal) mg/dL - ABG Interpretation ABG results: PT/INR, D-dimer PT 12.5 Seconds (9.4-12.1) H 02/11/19 03:10 - Impressions Impressions Head CT 02/10/19 23:48 IMPRESSION: No acute intracranial abnormality. Focal ovoid 1 cm lucency in the right frontal skull which could represent benign entities such as a venous Cren[place]. Given history of cancer, metastatic disease is not excluded. Comparison with prior remote studies would be helpful if available. Otherwise, bone scan could be performed. D/ / Chani Murguia Cha, MD / Chani Murguia Cha, MD Interpreting Provider: Chani Murguia Cha, MD Abdomen/Pelvis CT 02/10/19 23:51 IMPRESSION: 1. Within the chest, the patient has enlarged right axillary lymph nodes and a large area of asymmetry in the right breast. 2. Within the chest, moderate to pronounced mediastinal adenopathy is noted. The patient has numerous scattered ill-defined lung nodules consistent with pulmonary metastasis. 3. Findings compatible with hepatic metastatic disease. Enlarged right retrocrural lymph node. 4. Demineralization in the hips and scattered osseous abnormalities consistent with extensive bony metastatic disease. 5. Uterus is abnormal in appearance with heterogeneous enlarged endometrium RECOMMENDATIONS: Consider radionuclide bone imaging. D/ / Roseanne Singh MD / Roseanne Singh MD Interpreting Provider: Roseanne Singh MD Chest CT 02/10/19 23:51 IMPRESSION: 1. Within the chest, the patient has enlarged right axillary lymph nodes and a large area of asymmetry in the right breast. 2. Within the chest, moderate to pronounced mediastinal adenopathy is noted. The patient has numerous scattered ill-defined lung nodules consistent with pulmonary metastasis. 3. Findings compatible with hepatic metastatic disease. Enlarged right retrocrural lymph node. 4. Demineralization in the hips and scattered osseous abnormalities consistent with extensive bony metastatic disease. 5. Uterus is abnormal in appearance with heterogeneous enlarged endometrium RECOMMENDATIONS: Consider radionuclide bone imaging. D/ / Roseanne Singh MD / Roseanne Singh MD Interpreting Provider: Roseanne Singh MD Consult Discharge Plan - Plan Referrals: Leida Dixon CNP [Primary Care Provider] - 02/17/19 2:30 pm (5) Failure to thrive Qualifiers: Failure to thrive age range: in adult Qualified Code(s): R62.7 - Adult failure to thrive
[2019-02-11] MEDS ORDERED: Ketorolac 15 MG/ML VIAL IVP PRN (13:56)
[2019-02-11 20:25] LABS: Bilirubin,Urine Negative (Negative); Blood,Urine Negative (Negative); Clarity,Urine Turbid (Clear); Color,Urine Yellow (Yellow); Glucose,Urine (UA) Normal (Normal); Ketones,Urine Negative (Negative); Leukocyte Esterase,Urine Small (Negative); Nitrite,Urine Negative (Negative); PH,Urine 7.5 pH Units (5.0-8.0); Protein,Urine Trace mg/dL (Neg-Trace); Specific Gravity,Urine 1.017 (1.010-1.025); Urobilinogen,Urine Normal (Normal)
[2019-02-11 20:26] LABS: Bacteria,Urine None Seen per hpf (None-Few); Hyaline Casts,Urine None Seen per lpf (None-Few); RBC,Urine 0-3 per hpf (0-3); Squamous Epithelial Cell,Urine Many per lpf (None-Few)
[2019-02-11] MEDS ORDERED: Ibuprofen 600 MG TABLET PO ONE (20:35)
[2019-02-11] MEDS: Melatonin 3 MG TABLET PO PRN (21:08)
[2019-02-12] MEDS: *HR* Heparin 5,000 UNIT/ML VIAL SQ SCH ×3 (05:28→21:08)
[2019-02-12] MEDS ORDERED: *HR* OxyCODONE Immed Rel 5 MG TABLET PO PRN (14:00)
--- NOTE | 2019-02-12 14:03 | Internal Med Progress Note ---
Hospitalist Progress Note - Encounter Date of Encounter: 02/12/19 Time of Encounter: 13:30 - Subjective Interval History: Pt was seen and examined at bed side. She denied any CP / SOB. Feels better today. Still c/o weakness and lethargy. - Exam Vitals: Temp Pulse Resp BP Pulse Ox 97.8 F 80 16 123/68 94 02/12/19 12:12 02/12/19 12:12 02/12/19 12:12 02/12/19 12:12 02/12/19 12:12 Exam: Gen: Alert, awake, Oriented to time,place and person Chest: Diminished breath sounds B/L, No wheezing, No crackles, No rales axillary lymphadenopathy+ Heart: S1S2+ RRR No murmurs Abd: Soft, NT, BS +, No organomegaly Ext: No edema, pulses are palpable, No calf tenderness Back: mild paravertebral tenderness Neuro : No acute focal neuro deficits noticed Psych: depressed.. Denied any suicidal ideation/HI Skin: No rash. - Assessment and Plan (1) Axillary adenopathy Current Visit: Yes Status: Acute Assessment and Plan: concerning for possible breast malignancy, noticed possible mass in Rt breast on CT of chest She did not finish the biopsy y/d since she felt so weak and lethargic scheduled for Mammogram and US guided Rt axiallary lymph node / breast mass biopsy by IR in AM Explained to the pt about importance of going for this diagnostic work up she agreed to go for biopsy in AM Heme onc on board.. appreciate recommendations Patient does need to stay in the hospital more than 2 midnights due to her complex medical problems. So we will change her to full admission today. I did review my colleague Dr. Tillman's H & P including HPI, PMH, PSH, FH, SH, and ROS no changes noticed (2) Mediastinal lymphadenopathy Current Visit: Yes Status: Acute Assessment and Plan: care as above (3) Breast mass, right Current Visit: Yes Status: Acute Assessment and Plan: care as above (4) Anemia due to chronic illness Current Visit: Yes Status: Acute Assessment and Plan: stable Hb cont close monitoring reviewed her Iron studies.. concerning for possible malignancy / chronic disease (5) Failure to thrive Current Visit: Yes Status: Acute Assessment and Plan: Due to malignancy lost 30 lbs in 1 month consult nutrition Will check pre albumin level (6) Weakness Current Visit: Yes Status: Acute Assessment and Plan: PT / OT eval may need ECF placement SW/ CM working on it - Time Spent with Patient Total time spent is greater than 50% in coordination of care (as documented) at patient's floor/unit and/or counseling patient: Internal Medicine: Result - Labs CBC & Chem 7: 02/11/19 03:10 02/11/19 03:10 Labs: Urine 02/11/19 Range/Units 20:17 Urine Color Yellow (Yellow) Urine Clarity Turbid A (Clear) Urine pH 7.5 (5.0-8.0) pH Units Ur Specific [place] 1.017 (1.010-1.025) Urine Protein Trace (Neg-Trace) mg/dL Urine Glucose (UA) Normal (Normal) mg/dL - ABG Interpretation ABG results: PT/INR, D-dimer PT 12.5 Seconds (9.4-12.1) H 02/11/19 03:10 Consult Discharge Plan - Plan Referrals: Leida Dixon, [employer]PER[employer] [Primary Care Provider] - 02/17/19 2:30 pm (5) Failure to thrive Qualifiers: Failure to thrive age range: in adult Qualified Code(s): R62.7 - Adult failure to thrive
[2019-02-12] MEDS ORDERED: Ibuprofen 600 MG TABLET PO ONE (22:30)
[2019-02-12] MEDS: Melatonin 3 MG TABLET PO PRN (22:49)
[2019-02-13 02:42] LABS: Hematocrit 29.2 % (35.3-44.9); Hemoglobin 9.1 g/dL (11.5-15.4); Mean Corpuscular HGB Conc 31.2 g/dL (31.6-35.5); Mean Corpuscular Hemoglobin 27.6 pg (28.0-33.3); Mean Corpuscular Volume 88.5 fL (83.0-100.0); Mean Platelet Volume 11.8 fL (9.4-12.4); Platelet Count 175 K/mcL (140-400); Red Cell Distribution Width 14.4 % (11.5-14.5); White Blood Count 6.8 K/mcL (4.3-11.1)
[2019-02-13 03:10] LABS: Alanine Aminotransferase 11 Units/L (7-52); Albumin 3.4 g/dL (3.5-5.7); Albumin/Globulin Ratio 1.2 (1.1-2.2); Alkaline Phosphatase 117 Units/L (34-104); Aspartate Amino Transferase 48 Units/L (13-39); BUN/Creatinine Ratio 14 (6-26); Bilirubin,Total 0.5 mg/dL (0.3-1.0); Blood Urea Nitrogen 15 mg/dL (8-23); Calcium 9.5 mg/dL (8.6-10.3); Carbon Dioxide 25 mEq/L (23-29); Chloride 104 mEq/L (98-107); Globulin 2.8 g/dL (2.4-3.5); Glucose 111 mg/dL (70-105); Osmolality,Calculated 286 (280-300); Potassium 3.4 mEq/L (3.5-5.1); Sodium 137 mEq/L (136-145); Total Protein 6.2 g/dL (6.4-8.9); eGFR For African Americans > 60 (> 60); eGFR For Non-African Americans 50 (> 60)
[2019-02-13] MEDS: *HR* Heparin 5,000 UNIT/ML VIAL SQ SCH ×3 (07:20→22:05)
--- NOTE | 2019-02-13 14:27 | Internal Med Progress Note ---
Hospitalist Progress Note - Encounter Date of Encounter: 02/13/19 Time of Encounter: 14:25 - Subjective Interval History: Pt was seen and examined at bed side. She denied any CP / SOB. Still c/o weakness and lethargy She just came back from Biopsy - Exam Vitals: Temp Pulse Resp BP Pulse Ox 97.8 F 75 19 131/74 98 02/13/19 08:32 02/13/19 08:32 02/13/19 08:32 02/13/19 08:32 02/13/19 08:32 Exam: Gen: Alert, awake, Oriented to time,place and person Chest: Diminished breath sounds B/L, No wheezing, No crackles, No rales Heart: S1S2+ RRR No murmurs Abd: Soft, NT, BS +, No organomegaly Ext: No edema, pulses are palpable, No calf tenderness Back: no paravertebral tenderness Neuro : No acute focal neuro deficits noticed Psych: depressed.. Denied any suicidal ideation/HI Skin: No rash. - Assessment and Plan (1) Axillary adenopathy Current Visit: Yes Status: Acute Assessment and Plan: concerning for possible breast malignancy, noticed possible mass in Rt breast on CT of chest Had Mammogram and US guided Rt axiallary lymph node / breast mass biopsy by IR today will f/u on biopsy results Heme onc on board.. appreciate recommendations (2) Mediastinal lymphadenopathy Current Visit: Yes Status: Acute Assessment and Plan: care as above (3) Breast mass, right Current Visit: Yes Status: Acute Assessment and Plan: care as above (4) Anemia due to chronic illness Current Visit: Yes Status: Acute Assessment and Plan: stable Hb cont close monitoring reviewed her Iron studies.. concerning for possible malignancy / chronic disease (5) Failure to thrive Current Visit: Yes Status: Acute Assessment and Plan: Due to malignancy lost 30 lbs in 1 month her pre albumin level @ 8.8 She hernandez shave severe PCM Appreciate nutrition recommendations (6) Weakness Current Visit: Yes Status: Acute Assessment and Plan: PT / OT eval may need ECF placement SW/ CM working on it - Time Spent with Patient Total time spent is greater than 50% in coordination of care (as documented) at patient's floor/unit and/or counseling patient: Internal Medicine: Result - Labs CBC & Chem 7: 02/13/19 01:57 02/13/19 01:57 Labs: Short CBC 02/13/19 Range/Units 01:57 WBC 6.8 (4.3-11.1) K/mcL Hgb 9.1 L (11.5-15.4) g/dL Hct 29.2 L (35.3-44.9) % Plt Count 175 (140-400) K/mcL BMP 02/13/19 01:57 Sodium 137 Potassium 3.4 L Chloride 104 Carbon Dioxide 25 BUN 15 Creatinine 1.09 Glucose 111 H Calcium 9.5 Liver Function 02/13/19 Range/Units 01:57 Total Bilirubin 0.5 (0.3-1.0) mg/dL AST 48 H (13-39) Units/L ALT 11 (7-52) Units/L Alkaline Phosphatase 117 H (34-104) Units/L Albumin 3.4 L (3.5-5.7) g/dL - ABG Interpretation ABG results: PT/INR, D-dimer PT 12.5 Seconds (9.4-12.1) H 02/11/19 03:10 - Impressions Impressions Breast Tomosynthesis Diagnostic 02/13/19 10:28 IMPRESSION: 1. Right breast 3.3 cm 11 o'clock mass consistent with primary breast malignancy. Biopsy is recommended and can be performed under ultrasound guidance. 2. Abnormal 0.6 cm intraparenchymal lymph node at approximately 10 o'clock 10 cm from the nipple which may represent a same quadrant metastatic intraparenchymal lymph node. 3. Abnormal axillary lymph nodes with a dominant 2.8 cm abnormal lymph node corresponding with the CT finding consistent with metastatic lymphadenopathy. Biopsy is recommended and this can be performed under ultrasound guidance. BIRADS: BIRADS - CATEGORY 5 Findings are highly suggestive of malignancy. Biopsy should be considered at this time. OVERALL ASSESSMENT - HIGHLY SUGGESTIVE OF MALIGNANCY. A letter of notification will be sent to the patient regarding the results. My findings and recommendations were discussed with the patient at the time of service. A consumer sales representative from the radiology department will be contacting your office and assisting the patient in getting appropriate follow-up. D/ / 02/13/2019 12:08:44 Silvio Alcantara MD / [facility] Interpreting Provider: Silvio Alcantara MD Breast Ultrasound 02/13/19 10:28 IMPRESSION: 1. Right breast 3.3 cm 11 o'clock mass consistent with primary breast malignancy. Biopsy is recommended and can be performed under ultrasound guidance. 2. Abnormal 0.6 cm intraparenchymal lymph node at approximately 10 o'clock 10 cm from the nipple which may represent a same quadrant metastatic intraparenchymal lymph node. 3. Abnormal axillary lymph nodes with a dominant 2.8 cm abnormal lymph node corresponding with the CT finding consistent with metastatic lymphadenopathy. Biopsy is recommended and this can be performed under ultrasound guidance. BIRADS: BIRADS - CATEGORY 5 Findings are highly suggestive of malignancy. Biopsy should be considered at this time. OVERALL ASSESSMENT - HIGHLY SUGGESTIVE OF MALIGNANCY. A letter of notification will be sent to the patient regarding the results. My findings and recommendations were discussed with the patient at the time of service. A consumer sales representative from the radiology department will be contacting your office and assisting the patient in getting appropriate follow-up. D/ /13/2019 12:08:44 Silvio Alcantara MD / [facility] Interpreting Provider: Silvio Alcantara MD Mammogram Diagnostic 02/13/19 10:28 IMPRESSION: 1. Right breast 3.3 cm 11 o'clock mass consistent with primary breast malignancy. Biopsy is recommended and can be performed under ultrasound guidance. 2. Abnormal 0.6 cm intraparenchymal lymph node at approximately 10 o'clock 10 cm from the nipple which may represent a same quadrant metastatic intraparenchymal lymph node. 3. Abnormal axillary lymph nodes with a dominant 2.8 cm abnormal lymph node corresponding with the CT finding consistent with metastatic lymphadenopathy. Biopsy is recommended and this can be performed under ultrasound guidance. BIRADS: BIRADS - CATEGORY 5 Findings are highly suggestive of malignancy. Biopsy should be considered at this time. OVERALL ASSESSMENT - HIGHLY SUGGESTIVE OF MALIGNANCY. A letter of notification will be sent to the patient regarding the results. My findings and recommendations were discussed with the patient at the time of service. A consumer sales representative from the radiology department will be contacting your office and assisting the patient in getting appropriate follow-up. D/ / 02/13/2019 12:08:44 Silvio Alcantara MD / [facility] Interpreting Provider: Silvio Alcantara MD Breast Ultrasound 02/13/19 13:04 IMPRESSION: 1. Successful ultrasound-guided biopsy of the right breast hypoechoic mass at 11 o'clock 9 cm from the nipple. Specimens will be sent to pathology for evaluation. The biopsy clip is in the appropriate position. 2. Successful ultrasound-guided biopsy of the right axillary dominant abnormal lymph node identified on the tomosynthesis/ultrasound/CT chest exams. Specimens will be sent to pathology for evaluation. The biopsy clip is in the appropriate position. BIRADS: ZW - Pathology pending. D/ /13/2019 13:31:42 Silvio Alcantara MD / [facility] Interpreting Provider: Silvio Alcantara MD Mammogram Diagnostic 02/13/19 13:04 IMPRESSION: 1. Successful ultrasound-guided biopsy of the right breast hypoechoic mass at 11 o'clock 9 cm from the nipple. Specimens will be sent to pathology for evaluation. The biopsy clip is in the appropriate position. 2. Successful ultrasound-guided biopsy of the right axillary dominant abnormal lymph node identified on the tomosynthesis/ultrasound/CT chest exams. Specimens will be sent to pathology for evaluation. The biopsy clip is in the appropriate position. BIRADS: ZW - Pathology pending. D/ /13/2019 13:31:42 Silvio Alcantara MD / [facility] Interpreting Provider: Silvio Alcantara MD Vacuum Assisted Breast Core Biopsy 02/13/19 13:04 IMPRESSION: 1. Successful ultrasound-guided biopsy of the right breast hypoechoic mass at 11 o'clock 9 cm from the nipple. Specimens will be sent to pathology for evaluation. The biopsy clip is in the appropriate position. 2. Successful ultrasound-guided biopsy of the right axillary dominant abnormal lymph node identified on the tomosynthesis/ultrasound/CT chest exams. Specimens will be sent to pathology for evaluation. The biopsy clip is in the appropriate position. BIRADS: ZW - Pathology pending. D/ / 02/13/2019 13:31:42 Silvio Alcantara MD / [facility] Interpreting Provider: Silvio Alcantara MD Consult Discharge Plan - Plan Referrals: Leida Dixon CNP [Primary Care Provider] - 02/17/19 2:30 pm (5) Failure to thrive Qualifiers: Failure to thrive age range: in adult Qualified Code(s): R62.7 - Adult failure to thrive
[2019-02-13] MEDS: Melatonin 3 MG TABLET PO PRN (22:29)
[2019-02-14] MEDS: *HR* Heparin 5,000 UNIT/ML VIAL SQ SCH ×3 (06:00→21:47)
[2019-02-14] MEDS ORDERED: Bisacodyl 10 MG RECTAL SUPPOSITORY RC PRN (10:28)
[2019-02-14] MEDS ORDERED: Lactulose Oral Soln 20 GM/30 ML UDC PO PRN (10:28)
--- NOTE | 2019-02-14 13:29 | Internal Med Progress Note ---
Hospitalist Progress Note - Encounter Date of Encounter: 02/14/19 Time of Encounter: 13:40 - Subjective Interval History: Ms. Motta is a 68 year old female presented to the ED from the oncology clinic for failure to thrive and further work up for her recently found metastatic disease. Patient reported she has been having chronic low back pain for few m onths and followed-up with chiropractor. She had X ray spine done and noticed multiple ostolytic lesions. Patient then followed up with Heme oncology. Patient reported her last mammography was done approximately more than 2 years ago, loss colonoscopy less than 5 years ago that was normal, Pap smear that was done approximately 5 years ago that was normal. Family history positive for renal cancer. In the ER her CT of Chest / Abd / pelvis showed enlarged right axillary lymph nodes and a large area of asymmetry in the right breast. Moderate to pronounced mediastinal adenopathy is noted. She has numerous scattered ill- defined lung nodules consistent with pulmonary metastasis. Demineralization in the hips and scattered osseous abnormalities consistent with extensive bony metastatic disease. Uterus is abnormal in appearance with heterogeneous enlarged endometrium. She was admitted in the hospital and started her on symptomatic and supportive care. Initially refused to go for further work up, she thinks all her back pain is due to severe arthritis, her weight loss of 30 lbs in a month is due to lack of appetite and her back pain and bone lesions are due to his chiro practice miss management. Finally she went for Rt axiallary lymph node / breast biopsy y/d. Waiting on pathology report. She is more alert, awake and O x 4. Pain tolerable with current meds. c/o constipation. - Exam Vitals: Temp Pulse Resp BP Pulse Ox 97.9 F 85 17 125/75 94 02/14/19 11:45 02/14/19 11:45 02/14/19 11:45 02/14/19 11:20 02/14/19 11:45 Exam: Gen: Alert, awake, Oriented to time,place and person Chest: Diminished breath sounds B/L, No wheezing, No crackles, No rales clean incision on Rt lateral side of chest from biopsy.. dressing + Heart: S1S2+ RRR No murmurs Abd: Soft, NT, BS +, No organomegaly Ext: No edema, pulses are palpable, No calf tenderness Back: no paravertebral tenderness Neuro : No acute focal neuro deficits noticed Psych: depressed.. Denied any suicidal ideation/HI Skin: No rash. - Assessment and Plan (1) Axillary adenopathy Current Visit: Yes Status: Acute Assessment and Plan: concerning for possible breast malignancy, noticed possible mass in Rt breast on CT of chest Had Mammogram and US guided Rt axiallary lymph node / breast mass biopsy by IR gay f/u on biopsy results Heme onc on board.. appreciate recommendations (2) Mediastinal lymphadenopathy Current Visit: Yes Status: Acute Assessment and Plan: care as above (3) Breast mass, right Current Visit: Yes Status: Acute Assessment and Plan: care as above (4) Anemia due to chronic illness Current Visit: Yes Status: Acute Assessment and Plan: stable Hb cont close monitoring reviewed her Iron studies.. concerning for possible malignancy / chronic disease (5) Failure to thrive Current Visit: Yes Status: Acute Assessment and Plan: Due to malignancy lost 30 lbs in 1 month her pre albumin level @ 8.8 She hernandez shave severe PCM Appreciate nutrition recommendations (6) Weakness Current Visit: Yes Status: Acute Assessment and Plan: PT / OT eval may need ECF placement SW/ CM working on it (7) Constipation Current Visit: Yes Status: Acute Assessment and Plan: started her on stool softeners - Time Spent with Patient Total time spent is greater than 50% in coordination of care (as documented) at patient's floor/unit and/or counseling patient: Internal Medicine: Result - Labs CBC & Chem 7: 02/13/19 01:57 02/13/19 01:57 - ABG Interpretation ABG results: PT/INR, D-dimer PT 12.5 Seconds (9.4-12.1) H 02/11/19 03:10 - Impressions Impressions Breast Tomosynthesis Diagnostic 02/13/19 10:28 IMPRESSION: 1. Right breast 3.3 cm 11 o'clock mass consistent with primary breast malignancy. Biopsy is recommended and can be performed under ultrasound guidance. 2. Abnormal 0.6 cm intraparenchymal lymph node at approximately 10 o'clock 10 cm from the nipple which may represent a same quadrant metastatic intraparenchymal lymph node. 3. Abnormal axillary lymph nodes with a dominant 2.8 cm abnormal lymph node corresponding with the CT finding consistent with metastatic lymphadenopathy. Biopsy is recommended and this can be performed under ultrasound guidance. BIRADS: BIRADS - CATEGORY 5 Findings are highly suggestive of malignancy. Biopsy should be considered at this time. OVERALL ASSESSMENT - HIGHLY SUGGESTIVE OF MALIGNANCY. A letter of notification will be sent to the patient regarding the results. My findings and recommendations were discussed with the patient at the time of service. A videotape sales representative from the radiology department will be contacting your office and assisting the patient in getting appropriate follow-up. D/ 02/13/2019 12:08:44 Silvio Alcantara MD / [facility] Interpreting Provider: Slivio Alcantara MD Breast Ultrasound 02/13/19 10:28 IMPRESSION: 1. Right breast 3.3 cm 11 o'clock mass consistent with primary breast malignancy. Biopsy is recommended and can be performed under ultrasound guidance. 2. Abnormal 0.6 cm intraparenchymal lymph node at approximately 10 o'clock 10 cm from the nipple which may represent a same quadrant metastatic intraparenchymal lymph node. 3. Abnormal axillary lymph nodes with a dominant 2.8 cm abnormal lymph node corresponding with the CT finding consistent with metastatic lymphadenopathy. Biopsy is recommended and this can be performed under ultrasound guidance. BIRADS: BIRADS - CATEGORY 5 Findings are highly suggestive of malignancy. Biopsy should be considered at this time. OVERALL ASSESSMENT - HIGHLY SUGGESTIVE OF MALIGNANCY. A letter of notification will be sent to the patient regarding the results. My findings and recommendations were discussed with the patient at the time of service. A videotape sales representative from the radiology department will be contacting your office and assisting the patient in getting appropriate follow-up. D/ 02/13/2019 12:08:44 Silvio Alcantara MD / [facility] Interpreting Provider: Silvio Alcantara MD Mammogram Diagnostic 02/13/19 10:28 IMPRESSION: 1. Right breast 3.3 cm 11 o'clock mass consistent with primary breast malignancy. Biopsy is recommended and can be performed under ultrasound guidance. 2. Abnormal 0.6 cm intraparenchymal lymph node at approximately 10 o'clock 10 cm from the nipple which may represent a same quadrant metastatic intraparenchymal lymph node. 3. Abnormal axillary lymph nodes with a dominant 2.8 cm abnormal lymph node corresponding with the CT finding consistent with metastatic lymphadenopathy. Biopsy is recommended and this can be performed under ultrasound guidance. BIRADS: BIRADS - CATEGORY 5 Findings are highly suggestive of malignancy. Biopsy should be considered at this time. OVERALL ASSESSMENT - HIGHLY SUGGESTIVE OF MALIGNANCY. A letter of notification will be sent to the patient regarding the results. My findings and recommendations were discussed with the patient at the time of service. A videotape sales representative from the radiology department will be contacting your office and assisting the patient in getting appropriate follow-up. D/ / 02/13/2019 12:08:44 Silvio Alcantara MD / [facility] Interpreting Provider: Silvio Alcantara MD Breast Ultrasound 02/13/19 13:04 IMPRESSION: 1. Successful ultrasound-guided biopsy of the right breast hypoechoic mass at 11 o'clock 9 cm from the nipple. Specimens will be sent to pathology for evaluation. The biopsy clip is in the appropriate position. 2. Successful ultrasound-guided biopsy of the right axillary dominant abnormal lymph node identified on the tomosynthesis/ultrasound/CT chest exams. Specimens will be sent to pathology for evaluation. The biopsy clip is in the appropriate position. BIRADS: ZW - Pathology pending. D/ /13/2019 13:31:42 Silvio Alcantara MD / [email or web address] Interpreting Provider: Silvio Alcantara MD Mammogram Diagnostic 02/13/19 13:04 IMPRESSION: 1. Successful ultrasound-guided biopsy of the right breast hypoechoic mass at 11 o'clock 9 cm from the nipple. Specimens will be sent to pathology for evaluation. The biopsy clip is in the appropriate position. 2. Successful ultrasound-guided biopsy of the right axillary dominant abnormal lymph node identified on the tomosynthesis/ultrasound/CT chest exams. Specimens will be sent to pathology for evaluation. The biopsy clip is in the appropriate position. BIRADS: ZW - Pathology pending. D/ / 02/13/2019 13:31:42 Silvio Alcantara MD / [facility] Interpreting Provider: Silvio Alcantara MD Vacuum Assisted Breast Core Biopsy 02/13/19 13:04 IMPRESSION: 1. Successful ultrasound-guided biopsy of the right breast hypoechoic mass at 11 o'clock 9 cm from the nipple. Specimens will be sent to pathology for evaluation. The biopsy clip is in the appropriate position. 2. Successful ultrasound-guided biopsy of the right axillary dominant abnormal lymph node identified on the tomosynthesis/ultrasound/CT chest exams. Specimens will be sent to pathology for evaluation. The biopsy clip is in the appropriate position. BIRADS: ZW - Pathology pending. D/ / 02/13/2019 13:31:42 Silvio Alcantara MD / [facility] Interpreting Provider: Silvio Alcantara MD Consult Discharge Plan - Plan Referrals: Leida Dixon, OB NURSE [Primary Care Provider] - 02/17/19 2:30 pm (5) Failure to thrive Qualifiers: Failure to thrive age range: in adult Qualified Code(s): R62.7 - Adult failure to thrive (7) Constipation Qualifiers: Constipation type: unspecified constipation type Qualified Code(s): K59.00 - Constipation, unspecified
[2019-02-15] MEDS: Melatonin 3 MG TABLET PO PRN (00:04)
[2019-02-15] MEDS: *HR* Heparin 5,000 UNIT/ML VIAL SQ SCH (06:27)
[2019-02-15 08:55] VITALS: BP 127/76
--- NOTE | 2019-02-15 10:29 | Discharge Summary ---
Date of Encounter: 02/15/19 Time of Encounter: 10:19 - Discharge Diagnosis (1) Axillary adenopathy Priority: Primary Status: Acute (2) Mediastinal lymphadenopathy Priority: Primary Status: Acute (3) Breast mass, right Priority: Primary Status: Acute (4) Anemia due to chronic illness Priority: Secondary Status: Acute (5) Failure to thrive Priority: Primary Status: Acute Qualifiers: Failure to thrive age range: in adult Qualified Code(s): R62.7 - Adult failure to thrive (6) Weakness Priority: Primary Status: Acute (7) Constipation Priority: Primary Status: Acute Qualifiers: Constipation type: unspecified constipation type Qualified Code(s): K59.00 - Constipation, unspecified Hospital course: Ms. Motta is a 68 year old female presented to [facility] ED from oncology clinic for failure to thrive and further workup of recently found metastatic disease. Patient reported she had been having chronic low back pain for the past couple months. Followed up with chiropractor who ordered an x-ray which showed multiple osteolytic lesions. Patient then followed up with with hematology. Reported last mammogram is done more than 2 years ago, last colonoscopy less than 5 years ago which was normal and Pap smear was done apparently 5 years ago was normal. She did have a family history positive for renal cancer. In the ER a CT of the chest/abdomen/pelvis showed an enlarged right axillary lymph node and a large area of asymmetry in the right breast, moderate mediastinal adenopathy noted and numerous scattered ill defined lung nodules consistent with pulmonary metastasis also noted, as well as demineralization in the hips and scattered osseous abnormalities consistent with extensive bony prostatic disease. She was admitted for symptomatic and supportive care. Patient initially refused to go to further workup, she attributed back pain to her severe arthritis and thought weight loss was due to lack of appetite. He was finally agreeable for right axillary lymph node/breast biopsy on 02/13/2019. Pathology pending at this time. At time of discharge she still remained weak and tired. She was still undecided about whether she wanted to pursue her treatment are not. She did not want oncology follow-up scheduled prior to discharge. Stated she would talk with her family and make a decision at a later date. She continued report decreased appetite was agreeable to trial Remeron which was started at discharge. - Time Spent with Patient Total time spent providing and/or coordinating discharge services: - Discharge Medications Prescriptions: New Docusate [Colace] 100 mg PO BID PRN capsule PRN Reason: Constipation Polyethylene Glycol 3350 [MiraLAX] 17 gm PO DAILY powd.pack Mirtazapine [Remeron] 15 mg PO DAILY #30 tab.rapdis Continued Atenolol [Tenormin] 25 mg PO DAILY Magnesium Oxide [Magnesium] 400 mg PO DAILY Ascorbate Calcium [Vitamin C] 500 mg PO DAILY Cyanocobalamin (Vitamin B-12) [Vitamin B-12] 1,000 mcg PO DAILY Naproxen Sodium [Aleve] 220 mg PO DAILY PRN PRN Reason: Pain Home Medications: Atenolol [Tenormin] 25 mg PO DAILY 02/10/19 [History] Ascorbate Calcium [Vitamin C] 500 mg PO DAILY 02/11/19 [History] Cyanocobalamin (Vitamin B-12) [Vitamin B-12] 1,000 mcg PO DAILY 02/11/19 [History] Magnesium Oxide [Magnesium] 400 mg PO DAILY 02/11/19 [History] Naproxen Sodium [Aleve] 220 mg PO DAILY PRN 02/11/19 [History] Docusate [Colace] 100 mg PO BID PRN capsule 02/15/19 [Rx] Mirtazapine [Remeron] 15 mg PO DAILY #30 tab.rapdis 02/15/19 [Rx] Polyethylene Glycol 3350 [MiraLAX] 17 gm PO DAILY powd.pack 02/15/19 [Rx] Allergies/Adverse Reactions: Allergy/AdvReac Type Severity Reaction Status Date / Time meperidine [From Demerol] Allergy Hives Verified 01/30/19 16:07 morphine Allergy Hives Verified 01/30/19 16:07 Date of admission: 02/12/19 14:01 Primary care physician: ROME Browne Consults: 02/11/19 06:00 Consult to Oncology Hematology [CONS] Routine Consulting Provider: Isabell Estrella Reason for Consult: sent from oncology clinic-failure to thrive, follows with oncology and Recommended inpatient work up. Call Completed: No 02/11/19 09:04 Consult to Interventional Radiology [CONS] Routine Consulting Provider: Radiology Interventional Cols Reason for Consult: us guided biopsy of right axillary lymph node Call Completed: No 02/11/19 10:50 Consult to Occupational Therapy [CONS] Routine Comment: Evaluate, develop and implement POC Reason for Consult: WEAKNESS, DECONDITIONING Does patient have active BEDREST order?: No Is patient medically & hemodynamically stable?: Yes Consult to Physical Therapy [CONS] Routine Comment: Evaluate, develop and implement POC Reason for Consult: WEAKNESS, DECONDITIONING Does patient have active BEDREST order?: No Is patient medically & hemodynamically stable?: Yes 02/12/19 15:14 Consult to Line Up Worker [CONS] Routine Reason for SW Consult: PT/OT RECOMMEND SNF. REFERRAL MADE TO [facility] Discharging clinician: Charmaine Sparks Anticipated date of discharge: 02/15/19 - Constitutional Vitals: Temp Pulse Resp BP Pulse Ox 97.7 F 83 16 127/76 92 02/15/19 08:54 02/15/19 08:54 02/15/19 08:54 02/15/19 08:54 02/15/19 08:54 General appearance: Present: A&O X 3 Exam: . - Head Head exam: Present: atraumatic, normocephalic - Eye Eye exam: Present: PERRL, conjuntiva pink, sclera anicteric Pupils: Present: PERRL - Neck Neck exam general surgery: Present: supple, trachea midline. Absent: lymphadenopathy - Respiratory Respiratory exam: Present: CTAB. Absent: accessory muscle use, rales, rhonchi, wheezes - Cardiovascular Cardiovascular exam: Present: RRR, +S1, +S2. Absent: diastolic murmur, gallop, rubs, systolic murmur - GI/Abdominal GI/Abdominal exam: Present: normal bowel sounds, soft, no peritoneal signs. Absent: distended, tenderness - Extremities Exam Extremities exam: Present: warm, radial pulses palpable and symmetrical. Absent: calf tenderness, cyanotic, pedal edema - Neurological Exam Neurological exam: Present: CN II-XII intact, oriented X3, no focal deficits. Absent: pronater drift, facial droop, speech deficit - Psychiatric Psychiatric exam: Present: depressed, flat affect - Skin Skin exam: Present: dry, intact - Patient Status Disposition: Transfer SNF Condition: Good Functional capacity at discharge: independent ambulation Overall status at discharge: patient is progressing back to baseline - Discharge Instructions Follow Up With: Leida Dixon CNP [Primary Care Provider] - 02/17/19 2:30 pm - Diet and Activity Activity: as per physical therapy Diet: advance to your usual diet
--- NOTE | 2019-02-15 10:31 | Physician Discharge Referral ---
ExtendedCare Referral Info Transfer To: [facility] Provider in Charge: Charmaine Sparks CNP Provider in Charge after Transfer: Other (SNF provider) Institutional Level of Care: Skilled - Diagnosis (1) Axillary adenopathy Status: Acute (2) Mediastinal lymphadenopathy Status: Acute (3) Breast mass, right Status: Acute (4) Anemia due to chronic illness Status: Acute (5) Failure to thrive Status: Acute (6) Weakness Status: Acute (7) Constipation Status: Acute - Transfer Medications Prescriptions: Mirtazapine [Remeron] 15 mg PO DAILY #30 tab.rapdis Prescription Printed Home Medications: Atenolol [Tenormin] 25 mg PO DAILY 02/10/19 [History] Ascorbate Calcium [Vitamin C] 500 mg PO DAILY 02/11/19 [History] Cyanocobalamin (Vitamin B-12) [Vitamin B-12] 1,000 mcg PO DAILY 02/11/19 [History] Magnesium Oxide [Magnesium] 400 mg PO DAILY 02/11/19 [History] Naproxen Sodium [Aleve] 220 mg PO DAILY PRN 02/11/19 [History] Docusate [Colace] 100 mg PO BID PRN capsule 02/15/19 [Rx] Mirtazapine [Remeron] 15 mg PO DAILY #30 tab.rapdis 02/15/19 [Rx] Polyethylene Glycol 3350 [MiraLAX] 17 gm PO DAILY powd.pack 02/15/19 [Rx] Allergies/Adverse Reactions: Allergy/AdvReac Type Severity Reaction Status Date / Time meperidine [From Demerol] Allergy Hives Verified 01/30/19 16:07 morphine Allergy Hives Verified 01/30/19 16:07 - Respiratory Orders Smoking Cessation: Smoking cessation has been advised. For more information, call the [place] Tobacco Quit Line at 5-921-GFOU-NOW. - Advance Directives Code Status: Full Code - Mobility Orders Ambulate - Rehabiliation Orders Rehab Potential: Good Rehab Orders: Evaluation for Physical Therapy, Evaluation for Occupational Therapy - Diet Orders Regular CERTIFICATION: I certify that the transfer of the above named patient to an Extended Care Facility is necessary for the continuing treatment of the diagnosis listed. The above information is true and accurate reflection of patient's current condition. Confidential - Redisclosure prohibited without a patient's written consent.
--- NOTE | 2019-02-20 09:25 | Event Note ---
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 ER/LA, and Her2 status pending. Discussed results again with patient, but unable to discuss possible treatment options until remaining receptor status known. She has a follow-up scheduled with Dr. Luna to review results and discus treatment. Cathi requests that information be provided to her estranged that she was speaking to on the phone. Diagnosis provided to and he states that, "God will heal here." He states that she is not permitted to receive any treatment. Offered meeting with hospice/palliative care team and he refuses. Phone was placed down at bed and spoke to the patient. She is uncertain of what she will do. She is encouraged to speak to her family, her , son, and sister, and decide was it is best for her. She notes that she will pray over the weekend and will try to make a decision. Plan is to be discharged to rehab.
== END 2019-02-15 13:41 | DRG 579 ==
LOC: 3BNU 15:42 → EMEROOARM 15:42 → SUATTDRO 18:38 → 3BNU 19:43
PROVIDERS: ADMIT Internal Medicine; ATTEND Family Medicine

== ENCOUNTER 2019-05-21 19:56 | Inpatient (IN) ==
[2019-05-21] MEDS ORDERED: 0.9 % Sodium Chloride 1,000 ML IVC ONE (20:53)
[2019-05-21 21:39] LABS: Basophils # 0.1 K/mcL (0.0-0.2); Basophils % 2.4 %; Eosinophils # 0.1 K/mcL (0.0-0.6); Eosinophils % 3.7 %; Hematocrit 31.7 % (35.3-44.9); Hemoglobin 10.9 g/dL (11.5-15.4); Lymphocytes # 1.8 K/mcL (0.6-4.6); Lymphocytes % 62.2 %; Mean Corpuscular HGB Conc 34.4 g/dL (31.6-35.5); Mean Corpuscular Hemoglobin 35.3 pg (28.0-33.3); Mean Corpuscular Volume 102.6 fL (83.0-100.0); Mean Platelet Volume 10.4 fL (9.4-12.4); Monocytes # 0.2 K/mcL (0.0-1.3); Monocytes % 7.1 %; Neutrophils # 0.7 K/mcL (1.6-8.9); Platelet Count 210 K/mcL (140-400); Red Blood Count 3.09 M/mcL (3.82-4.97); Red Cell Distribution Width 19.6 % (11.5-14.5); Segmented Neutrophils % 24.6 %
[2019-05-21 22:04] LABS: BUN/Creatinine Ratio 23 (6-26); Blood Urea Nitrogen 19 mg/dL (8-23); Calcium 5.7 mg/dL (8.6-10.3); Carbon Dioxide 18 mEq/L (23-29); Chloride 107 mEq/L (98-107); Glucose 99 mg/dL (70-105); Osmolality,Calculated 290 (280-300); Potassium 1.8 mEq/L (3.5-5.1); Sodium 139 mEq/L (136-145); eGFR For African Americans > 60 (> 60); eGFR For Non-African Americans > 60 (> 60)
[2019-05-21] MEDS ORDERED: Potassium Chloride Elixir 20 MEQ/15 ML UDC PO ONE (22:07)
[2019-05-21] MEDS: Calcium Gluconate 1gm/50mL 1 GM/50 ML BAG IVPB SCH (23:09)
[2019-05-22] MEDS ORDERED: 0.9 % Sodium Chloride 250 ML ONE (00:07)
[2019-05-22] MEDS: Calcium Gluconate 1gm/50mL 1 GM/50 ML BAG IVPB SCH ×3 (00:13→16:45)
[2019-05-22] MEDS ORDERED: 0.9 % Sodium Chloride 500 ML ONE (01:31)
[2019-05-22] MEDS ORDERED: Potassium Chloride Elixir 20 MEQ/15 ML UDC PO ONE (02:07)
[2019-05-22] MEDS ORDERED: Naloxone 0.4 MG/ML INJ IVP PRN ×2 (02:20→02:21)
[2019-05-22] MEDS ORDERED: Ondansetron 4 MG/2 ML VIAL IVP PRN (02:21)
[2019-05-22 03:37] LABS: Phosphorous 1.5 mg/dL (2.7-4.5)
[2019-05-22] MEDS ORDERED: *HR* LORazepam 0.5 MG TABLET PO PRN (04:22)
[2019-05-22] MEDS: 0.9 % Sodium Chloride 1,000 ML IVC SCH ×2 (07:40→23:00)
[2019-05-22] MEDS ORDERED: Potassium Phosphate 44 MEQ in 0.9 % Sodium Chloride 250 ML IVPB ONE (07:52)
[2019-05-22 08:03] LABS: Basophils # 0.1 K/mcL (0.0-0.2); Basophils % 2.2 %; Eosinophils # 0.1 K/mcL (0.0-0.6); Eosinophils % 3.3 %; Hematocrit 28.6 % (35.3-44.9); Hemoglobin 9.9 g/dL (11.5-15.4); Lymphocytes # 1.7 K/mcL (0.6-4.6); Lymphocytes % 60.9 %; Mean Corpuscular HGB Conc 34.6 g/dL (31.6-35.5); Mean Corpuscular Hemoglobin 35.7 pg (28.0-33.3); Mean Corpuscular Volume 103.2 fL (83.0-100.0); Mean Platelet Volume 11.5 fL (9.4-12.4); Monocytes # 0.2 K/mcL (0.0-1.3); Monocytes % 7.7 %; Neutrophils # 0.7 K/mcL (1.6-8.9); Platelet Count 216 K/mcL (140-400); Red Blood Count 2.77 M/mcL (3.82-4.97); Red Cell Distribution Width 19.9 % (11.5-14.5); Segmented Neutrophils % 25.9 %; White Blood Count 2.7 K/mcL (4.3-11.1)
[2019-05-22] MEDS: Cyanocobalamin (B-12) 1,000 MCG TABLET PO SCH (09:14)
[2019-05-22] MEDS ORDERED: ABEMACICLIB 150 MG PO SCH (09:30)
[2019-05-22 12:10] LABS: BUN/Creatinine Ratio 20 (6-26); Blood Urea Nitrogen 18 mg/dL (8-23); Calcium 6.6 mg/dL (8.6-10.3); Carbon Dioxide 21 mEq/L (23-29); Chloride 106 mEq/L (98-107); Glucose 154 mg/dL (70-105); Osmolality,Calculated 291 (280-300); Potassium 2.6 mEq/L (3.5-5.1); Sodium 138 mEq/L (136-145); eGFR For African Americans > 60 (> 60); eGFR For Non-African Americans > 60 (> 60)
[2019-05-23 01:02] LABS: Basophils # 0.1 K/mcL (0.0-0.2); Basophils % 2.2 %; Eosinophils # 0.1 K/mcL (0.0-0.6); Eosinophils % 5.7 %; Hematocrit 28.1 % (35.3-44.9); Hemoglobin 9.5 g/dL (11.5-15.4); Lymphocytes # 1.4 K/mcL (0.6-4.6); Lymphocytes % 58.7 %; Mean Corpuscular HGB Conc 33.8 g/dL (31.6-35.5); Mean Corpuscular Volume 106.4 fL (83.0-100.0); Mean Platelet Volume 10.9 fL (9.4-12.4); Monocytes # 0.1 K/mcL (0.0-1.3); Monocytes % 6.1 %; Neutrophils # 0.6 K/mcL (1.6-8.9); Platelet Count 194 K/mcL (140-400); Red Blood Count 2.64 M/mcL (3.82-4.97); Red Cell Distribution Width 19.9 % (11.5-14.5); Segmented Neutrophils % 27.3 %; White Blood Count 2.3 K/mcL (4.3-11.1)
[2019-05-23 01:06] LABS: Magnesium 1.8 mg/dL (1.6-2.6); Phosphorous 2.1 mg/dL (2.7-4.5)
[2019-05-23 01:07] LABS: BUN/Creatinine Ratio 11 (6-26); Blood Urea Nitrogen 8 mg/dL (8-23); Calcium 7.3 mg/dL (8.6-10.3); Carbon Dioxide 21 mEq/L (23-29); Chloride 109 mEq/L (98-107); Glucose 122 mg/dL (70-105); Osmolality,Calculated 288 (280-300); Potassium 2.9 mEq/L (3.5-5.1); Sodium 139 mEq/L (136-145); eGFR For African Americans > 60 (> 60); eGFR For Non-African Americans > 60 (> 60)
[2019-05-23 02:18] LABS: Anisocytosis 1+ (Not Present); Platelet Estimate Normal (Normal)
[2019-05-23] MEDS: Cyanocobalamin (B-12) 1,000 MCG TABLET PO SCH (09:02)
[2019-05-24] MEDS ORDERED: Calcium Gluconate 1gm/50mL 1 GM/50 ML BAG IVPB ONE (04:00)
[2019-05-24 05:25] LABS: Basophils # 0.1 K/mcL (0.0-0.2); Basophils % 1.9 %; Eosinophils # 0.1 K/mcL (0.0-0.6); Eosinophils % 4.8 %; Hematocrit 26.8 % (35.3-44.9); Hemoglobin 8.9 g/dL (11.5-15.4); Lymphocytes # 1.8 K/mcL (0.6-4.6); Lymphocytes % 67.3 %; Mean Corpuscular HGB Conc 33.2 g/dL (31.6-35.5); Mean Corpuscular Hemoglobin 35.9 pg (28.0-33.3); Mean Corpuscular Volume 108.1 fL (83.0-100.0); Monocytes # 0.1 K/mcL (0.0-1.3); Monocytes % 4.8 %; Neutrophils # 0.6 K/mcL (1.6-8.9); Platelet Count 182 K/mcL (140-400); Red Blood Count 2.48 M/mcL (3.82-4.97); Red Cell Distribution Width 19.7 % (11.5-14.5); Segmented Neutrophils % 21.2 %; White Blood Count 2.7 K/mcL (4.3-11.1)
[2019-05-24 05:43] LABS: BUN/Creatinine Ratio 14 (6-26); Blood Urea Nitrogen 10 mg/dL (8-23); Carbon Dioxide 20 mEq/L (23-29); Chloride 109 mEq/L (98-107); Glucose 105 mg/dL (70-105); Osmolality,Calculated 291 (280-300); Potassium 3.3 mEq/L (3.5-5.1); Sodium 141 mEq/L (136-145); eGFR For African Americans > 60 (> 60); eGFR For Non-African Americans > 60 (> 60)
[2019-05-24 06:44] LABS: Anisocytosis 1+ (Not Present); Microcytosis Present (Not Present); Platelet Estimate Normal (Normal)
[2019-05-24] MEDS: Cyanocobalamin (B-12) 1,000 MCG TABLET PO SCH (10:26)
[2019-05-24 15:53] VITALS: BP 115/63
== END 2019-05-24 18:30 | disposition home or self-care (01) | DRG 640 ==
LOC: 2NNU 19:56 → EMEROOARM 19:56 → SUATTDRO 05-22 00:31 → 2NNU 05-22 01:30
PROVIDERS: ADMIT Internal Medicine; ATTEND Student in an Organized Health Care Education/Training Program

== ENCOUNTER 2020-10-04 18:23 | Inpatient (IN) ==
[2020-10-04 19:28] LABS: Basophils # 0.1 K/mcL (0.0-0.2); Basophils % 0.7 %; Eosinophils # 0.1 K/mcL (0.0-0.6); Eosinophils % 0.6 %; Hemoglobin 11.4 g/dL (11.5-15.4); Immature Granulocytes % 2.3 % (0-4); Lymphocytes # 2.3 K/mcL (0.6-4.6); Lymphocytes % 23.6 %; Mean Corpuscular HGB Conc 33.5 g/dL (31.6-35.5); Mean Corpuscular Hemoglobin 35.2 pg (28.0-33.3); Mean Corpuscular Volume 104.9 fL (83.0-100.0); Mean Platelet Volume 12.4 fL (9.4-12.4); Monocytes # 1.1 K/mcL (0.0-1.3); Monocytes % 11.4 %; Neutrophils # 5.9 K/mcL (1.6-8.9); Nucleated Red Blood Cells 0.8 /100 WBC (0); Platelet Count 187 K/mcL (140-400); Red Blood Count 3.24 M/mcL (3.82-4.97); Red Cell Distribution Width 12.6 % (11.5-14.5); Segmented Neutrophils % 61.4 %; White Blood Count 9.6 K/mcL (4.3-11.1)
[2020-10-04 20:02] LABS: Albumin 3.8 g/dL (3.5-5.7); Albumin/Globulin Ratio 1.2 (1.1-2.2); Bilirubin,Total 1.7 mg/dL (0.3-1.0); Globulin 3.1 g/dL (2.4-3.5); Potassium 4.1 mEq/L (3.5-5.1); Total Protein 6.9 g/dL (6.4-8.9)
[2020-10-04] MEDS ORDERED: 0.9 % Sodium Chloride 1,000 ML IVC ONE (20:07)
[2020-10-04] MEDS ORDERED: cefTRIAXone 1,000 MG in Water for inj. (sterile) 10 ML IVP ONE (20:07)
[2020-10-04 20:27] LABS: BUN/Creatinine Ratio 18 (6-26); Blood Urea Nitrogen 24 mg/dL (8-23); Calcium 8.7 mg/dL (8.6-10.3); Carbon Dioxide 20 mEq/L (23-29); Chloride 100 mEq/L (98-107); Glucose 142 mg/dL (70-105); Magnesium 2.3 mg/dL (1.6-2.6); Osmolality,Calculated 280 (280-300); Potassium 4.1 mEq/L (3.5-5.1); Sodium 132 mEq/L (136-145); Troponin I < 0.03 ng/mL (< 0.04); eGFR For African Americans 46 (> 60); eGFR For Non-African Americans 38 (> 60)
[2020-10-04 22:50] LABS: Bacteria,Urine Few per hpf (None-Few); Bilirubin,Urine Negative (Negative); Blood,Urine Negative (Negative); Clarity,Urine Turbid (Clear); Color,Urine Yellow (Yellow); Glucose,Urine (UA) Normal (Normal); Ketones,Urine 10 mg/dL (Negative); Leukocyte Esterase,Urine Moderate (Negative); Mucus,Urine Few per lpf (None-Few); Nitrite,Urine Negative (Negative); PH,Urine 5.5 pH Units (5.0-8.0); Protein,Urine 30 mg/dL (Neg-Trace); Specific Gravity,Urine 1.023 (1.010-1.025); Squamous Epithelial Cell,Urine Few per hpf (None-Few)
[2020-10-04] MEDS ORDERED: Doxycycline 100 MG in 0.9 % Sodium Chloride Mini Bag 100 ML IVPB ONE (23:24)
[2020-10-05] MEDS ORDERED: *HR* Promethazine 25 MG/ML VIAL IM PRN (00:13)
[2020-10-05] MEDS ORDERED: Acetaminophen 325 MG TABLET PO PRN (00:13)
[2020-10-05] MEDS ORDERED: *HR* OxyCODONE Immed Rel 5 MG TABLET PO PRN (00:13)
[2020-10-05] MEDS ORDERED: Ondansetron 4 MG/2 ML VIAL IVP PRN (00:13)
[2020-10-05] MEDS ORDERED: *HR* HYDROcodone/Acet 5/325 mg TABLET PO PRN (00:13)
[2020-10-05] MEDS ORDERED: Melatonin 3 MG TABLET PO PRN (00:13)
[2020-10-05] MEDS ORDERED: Naloxone 0.4 MG/ML INJ IVP PRN (00:13)
[2020-10-05 02:54] LABS: Basophils # 0.1 K/mcL (0.0-0.2); Basophils % 0.8 %; Eosinophils % 0.5 %; Hemoglobin 10.3 g/dL (11.5-15.4); Immature Granulocytes % 1.8 % (0-4); Lymphocytes # 1.9 K/mcL (0.6-4.6); Lymphocytes % 22.2 %; Mean Corpuscular HGB Conc 32.2 g/dL (31.6-35.5); Mean Corpuscular Hemoglobin 34.3 pg (28.0-33.3); Mean Corpuscular Volume 106.7 fL (83.0-100.0); Mean Platelet Volume 12.2 fL (9.4-12.4); Neutrophils # 5.5 K/mcL (1.6-8.9); Nucleated Red Blood Cells 0.7 /100 WBC (0); Platelet Count 175 K/mcL (140-400); Red Cell Distribution Width 12.8 % (11.5-14.5); Segmented Neutrophils % 63.7 %; White Blood Count 8.7 K/mcL (4.3-11.1)
[2020-10-05 02:59] LABS: INR 1.3
[2020-10-05 03:09] LABS: Calcium 8.3 mg/dL (8.6-10.3); Chol/HDL Ratio 6.1 (0-4.9); Magnesium 2.3 mg/dL (1.6-2.6); Potassium 3.9 mEq/L (3.5-5.1)
[2020-10-05] MEDS ORDERED: polyethylene glycoL 3350 17 GM POWD.PACK PO PRN (05:29)
[2020-10-05] MEDS: Sennosides/Docusate Sodium TABLET PO SCH ×2 (08:01→20:20)
[2020-10-05] MEDS: cefTRIAXone 1,000 MG in Water for inj. (sterile) 10 ML IVP SCH (08:01)
[2020-10-05] MEDS: Doxycycline 100 MG CAPSULE PO SCH ×2 (09:45→20:20)
[2020-10-05] MEDS: atenoloL 25 MG TABLET PO SCH (10:57)
[2020-10-05] MEDS ORDERED: Doxycycline 100 MG in 0.9 % Sodium Chloride Mini Bag 100 ML IVPB SCH (12:00)
[2020-10-05 12:11] LABS: Adenovirus Not Detected (Not Detect); Bordetella Pertussis Not Detected (Not Detect); Chlamydophila pneumoniae Not Detected (Not Detect); Coronavirus 229E Not Detected (Not Detect); Coronavirus HKU1 Not Detected (Not Detect); Coronavirus NL63 Not Detected (Not Detect); Coronavirus OC43 Not Detected (Not Detect); Human Metapneumovirus Not Detected (Not Detect); Human Rhinovirus/Enterovirus Not Detected (Not Detect); Influenza A Subtype 2009 H1 Not Detected (Not Detect); Influenza B Not Detected (Not Detect); Mycoplasma pneumoniae Not Detected (Not Detect); Parainfluenza Virus 1 Not Detected (Not Detect); Parainfluenza Virus 2 Not Detected (Not Detect); Parainfluenza Virus 3 Not Detected (Not Detect); Parainfluenza Virus 4 Not Detected (Not Detect); Respiratory Syncytial Virus Not Detected (Not Detect); SARS-CoV-2 Not Detected (Not Detect)
[2020-10-05] MEDS: polyethylene glycoL 3350 17 GM POWD.PACK PO SCH ×2 (15:26→20:20)
[2020-10-06 06:03] LABS: Hematocrit 31.1 % (35.3-44.9); Hemoglobin 9.9 g/dL (11.5-15.4); Mean Corpuscular HGB Conc 31.8 g/dL (31.6-35.5); Mean Corpuscular Hemoglobin 33.9 pg (28.0-33.3); Mean Corpuscular Volume 106.5 fL (83.0-100.0); Platelet Count 201 K/mcL (140-400); Red Blood Count 2.92 M/mcL (3.82-4.97); White Blood Count 7.4 K/mcL (4.3-11.1)
[2020-10-06 06:23] LABS: Calcium 8.4 mg/dL (8.6-10.3); Magnesium 2.4 mg/dL (1.6-2.6); Potassium 4.3 mEq/L (3.5-5.1)
[2020-10-06] MEDS: Doxycycline 100 MG CAPSULE PO SCH ×2 (08:43→20:57)
[2020-10-06] MEDS: Sennosides/Docusate Sodium TABLET PO SCH ×2 (08:43→20:56)
[2020-10-06] MEDS: cefTRIAXone 1,000 MG in Water for inj. (sterile) 10 ML IVP SCH (08:43)
[2020-10-06] MEDS: polyethylene glycoL 3350 17 GM POWD.PACK PO SCH ×2 (08:43→20:56)
[2020-10-06] MEDS: atenoloL 25 MG TABLET PO SCH (10:53)
[2020-10-07 06:23] LABS: Basophils # 0.1 K/mcL (0.0-0.2); Eosinophils # 0.1 K/mcL (0.0-0.6); Eosinophils % 1.3 %; Hematocrit 32.7 % (35.3-44.9); Hemoglobin 10.7 g/dL (11.5-15.4); Immature Granulocytes % 3.7 % (0-4); Lymphocytes # 2.7 K/mcL (0.6-4.6); Lymphocytes % 28.3 %; Mean Corpuscular HGB Conc 32.7 g/dL (31.6-35.5); Mean Corpuscular Hemoglobin 34.9 pg (28.0-33.3); Mean Corpuscular Volume 106.5 fL (83.0-100.0); Mean Platelet Volume 11.9 fL (9.4-12.4); Monocytes # 0.7 K/mcL (0.0-1.3); Monocytes % 7.3 %; Neutrophils # 5.5 K/mcL (1.6-8.9); Nucleated Red Blood Cells 1.3 /100 WBC (0); Platelet Count 246 K/mcL (140-400); Red Blood Count 3.07 M/mcL (3.82-4.97); Red Cell Distribution Width 13.2 % (11.5-14.5); Segmented Neutrophils % 58.4 %; White Blood Count 9.4 K/mcL (4.3-11.1)
[2020-10-07 07:50] LABS: % Iron Saturation 40 % (15-50); Alanine Aminotransferase 25 Units/L (7-52); Albumin 3.4 g/dL (3.5-5.7); Albumin/Globulin Ratio 1.2 (1.1-2.2); Alkaline Phosphatase 419 Units/L (34-104); Aspartate Amino Transferase 87 Units/L (13-39); BUN/Creatinine Ratio 16 (6-26); Bilirubin,Direct 0.5 mg/dL (0.0-0.2); Bilirubin,Indirect 0.7 mg/dL (0.0-1.0); Bilirubin,Total 1.2 mg/dL (0.3-1.0); Blood Urea Nitrogen 19 mg/dL (8-23); Calcium 8.5 mg/dL (8.6-10.3); Carbon Dioxide 22 mEq/L (23-29); Chloride 103 mEq/L (98-107); Globulin 2.9 g/dL (2.4-3.5); Glucose 108 mg/dL (70-105); Iron 79 mcg/dL (50-170); Magnesium 2.4 mg/dL (1.6-2.6); Osmolality,Calculated 285 (280-300); Sodium 136 mEq/L (136-145); Total Protein 6.3 g/dL (6.4-8.9); Transferrin 141 mg/dL (203-362); eGFR For African Americans 54 (> 60); eGFR For Non-African Americans 45 (> 60)
[2020-10-07 08:05] LABS: Ferritin > 1500 ng/mL (10-120)
[2020-10-07 08:06] LABS: Folate 18.9 ng/mL (3.0-16.0); Vitamin B12 > 1500 pg/mL (250-1100)
[2020-10-07] MEDS: polyethylene glycoL 3350 17 GM POWD.PACK PO SCH ×2 (08:15→21:01)
[2020-10-07] MEDS: cefTRIAXone 1,000 MG in Water for inj. (sterile) 10 ML IVP SCH (08:15)
[2020-10-07] MEDS: Sennosides/Docusate Sodium TABLET PO SCH ×2 (08:15→21:01)
[2020-10-07] MEDS: Doxycycline 100 MG CAPSULE PO SCH ×2 (08:15→21:01)
[2020-10-07] MEDS: atenoloL 25 MG TABLET PO SCH (11:06)
[2020-10-07] MEDS: Cefdinir 300 MG CAPSULE PO SCH (21:01)
[2020-10-08 05:47] LABS: Eosinophils # 0.1 K/mcL (0.0-0.6); Hematocrit 30.1 % (35.3-44.9); Hemoglobin 9.9 g/dL (11.5-15.4); Mean Corpuscular HGB Conc 32.9 g/dL (31.6-35.5); Mean Corpuscular Hemoglobin 35.1 pg (28.0-33.3); Mean Corpuscular Volume 106.7 fL (83.0-100.0); Nucleated Red Blood Cells 1.4 /100 WBC (0); Platelet Count 216 K/mcL (140-400); Red Blood Count 2.82 M/mcL (3.82-4.97); Red Cell Distribution Width 13.2 % (11.5-14.5); White Blood Count 7.2 K/mcL (4.3-11.1)
[2020-10-08 06:15] LABS: Calcium 8.3 mg/dL (8.6-10.3); Magnesium 2.3 mg/dL (1.6-2.6); Potassium 4.1 mEq/L (3.5-5.1)
[2020-10-08 06:45] VITALS: BP 112/61
[2020-10-08 06:59] LABS: Lymphocytes # 1.6 K/mcL (0.6-4.6); Monocytes # 0.3 K/mcL (0.0-1.3); Neutrophils # 5.2 K/mcL (1.6-8.9); Platelet Estimate Normal (Normal); Polychromasia 1+ (Not Present); Toxic Granulation Present (Not Present)
[2020-10-08] MEDS: Cefdinir 300 MG CAPSULE PO SCH (07:52)
[2020-10-08] MEDS: Sennosides/Docusate Sodium TABLET PO SCH (07:57)
[2020-10-08] MEDS: polyethylene glycoL 3350 17 GM POWD.PACK PO SCH (07:57)
[2020-10-08] MEDS: Doxycycline 100 MG CAPSULE PO SCH (07:57)
[2020-10-08] MEDS: atenoloL 25 MG TABLET PO SCH (10:53)
[2020-10-09 17:39] LABS: Enterococcus by PCR Not Detected (Not Detect); mecA Methicillin-Resist Gene Not Detected (Not Detect)
[2020-10-09 17:40] LABS: Acinetobacter baumannii by PCR Not Detected (Not Detect); Candida albicans by PCR Not Detected (Not Detect); Candida glabrata by PCR Not Detected (Not Detect); Candida krusei by PCR Not Detected (Not Detect); Candida parapsilosis by PCR Not Detected (Not Detect); Candida tropicalis by PCR Not Detected (Not Detect); Enterobacter cloacae Cmplx PCR Not Detected (Not Detect); Enterobacteriaceae by PCR Not Detected (Not Detect); Escherichia coli by PCR Not Detected (Not Detect); Klebsiella oxytoca by PCR Not Detected (Not Detect); Klebsiella pneumoniae by PCR Not Detected (Not Detect); Proteus by PCR Not Detected (Not Detect); Pseudomonas aeruginosa by PCR Not Detected (Not Detect); Serratia marcescens by PCR Not Detected (Not Detect); Staphylococcus aureus by PCR Not Detected (Not Detect); Staphylococcus by PCR DETECTED (Not Detect); Streptococcus agalactiae(B)PCR Not Detected (Not Detect); Streptococcus by PCR Not Detected (Not Detect); Streptococcus pneumoniae PCR Not Detected (Not Detect); Streptococcus pyogenes (A) PCR Not Detected (Not Detect)
== END 2020-10-08 17:38 | disposition home or self-care (01) | DRG 871 ==
LOC: EMEROOARM 18:23 → 3BNU 18:23 → SUATTDRO 10-05 00:33 → 3BNU 10-05 01:22
PROVIDERS: ADMIT Internal Medicine; ATTEND Pharmacist